=== PATIENT | female | born 1955 | race Caucasian/White ===

== ENCOUNTER 2017-06-25 06:14 | Inpatient (IN) | payer OTHER ==
[2017-06-10 08:19] VITALS: BMI 35.6
[2017-06-25] MEDS ORDERED: Bacitracin 150,000 UNIT in Sodium Chloride 0.9% Irrig 3,000 ML IR SCH (07:30)
[2017-06-25] MEDS ORDERED: Bupivacaine HCl 0.5% PF (10 ml) Inj ONE ×2 (07:41→13:32)
[2017-06-25] MEDS ORDERED: ceFAZolin IV 2 gm in Dextrose 2 GM/50 ML BAG IVPB ONE (07:42)
[2017-06-25] MEDS ORDERED: Thrombin Topical 20,000 Intl Units Spray Kit TOP ONE (07:42)
[2017-06-25] MEDS ORDERED: Lactated Ringer's 1,000 ML IV ONE ×3 (08:03→11:15)
[2017-06-25] MEDS ORDERED: Midazolam 2 MG/2 ML VIAL ONE (08:07)
[2017-06-25] MEDS ORDERED: Propofol 10 mg/ml Inj (20 ML) ONE ×2 (08:07→11:38)
[2017-06-25] MEDS ORDERED: Bupivacaine Liposomal Inj 20 ml INJ ONE (08:22)
[2017-06-25] MEDS ORDERED: Sodium Chloride 0.9% 60 ML IV ONE (08:42)
[2017-06-25] MEDS ORDERED: Rocuronium 10 mg/ml (10 ml) ONE ×2 (09:26→09:27)
[2017-06-25] MEDS ORDERED: Neostigmine Methylsulfate 3mg/3ml Syringe IV ONE (10:51)
[2017-06-25] MEDS ORDERED: HYDROmorphone 0.5 mg/0.5 ml ISec IVP PRN (12:08)
--- NOTE | 2017-06-25 14:18 | PCM.ANESB7 ---
Adductor Canal Block - Adductor Canal Block Date of Procedure: 06/25/17 Anesthiologist: Karsten Pre-Procedure Diagnosis: s/p left knee total arthoplasty Post-Procedure Diagnosis: same Procedure Performed: Adductor Canal Block Left - Procedure Adductor Canal Block: The procedure was explained to the patient that it is for the post-operative pain management. Consent was obtained after a thorough discussion with the patient regarding the benefits and possible complications of local anesthetic adductor canal block of the femoral nerve. Standard monitors were applied to the patient. Time-out was held with the circulating nurse to confirm the appropriate block. The patient was placed in supine position with and the operative leg was flexed slightly at the knee and externally rotated as needed, and was kept anatomically stable. The mid-thigh of the left lower extremity was exposed. The ultrasound transducer was then applied transversely along the medial aspect, about midway down the thigh and the femoral artery and vein were identified in appropriate relation with the sartorius muscle. At this time, the femoral nerve was visualized lateral to the femoral artery within the canal. After thorough identification, this area area was prepped with chloraprep. At this point, a #22 gauge Stimuplex 4-inch needle was inserted in-plane in a [id number] orientation, and advanced toward the femoral nerve. Advancement was performed carefully under direct ultrasound visualization. After negative aspiration, 5cc of 0.5% Bupivacaine was injected and this was followed with 15cc of 0.5% Bupivacaine. Under ultrasound guidance the local anesthetics were observed spreading around the femoral nerve. The needle was removed intact and sterile dressing was applied. The patient had stable vital signs, was conscious and in no apparent distress. The patient tolerated the femoral nerve block well with stable vital signs.
[2017-06-25 14:23] LABS: BASO # 0.1 K/uL (0.0-0.2); BASO % 0.4 % (0.0-2.0); HEMOGLOBIN 11.7 g/dL (11.0-16.0); LYMPH # 1.1 K/uL (1.0-4.3); LYMPH % 7.6 % (20.0-40.0); MEAN CELL VOLUME 86.1 fL (81.0-99.0); MEAN CORPUSCULAR HEMOGLOBIN 28.4 pg (27.0-31.0); MEAN PLATELET VOLUME 7.6 fL (7.2-11.7); MONO # 1.2 K/uL (0.0-0.8); MONO % 8.1 % (0.0-10.0); NEUT # 12.2 K/uL (1.8-7.0); NEUT % 83.9 % (50.0-75.0); PLATELET COUNT 278 K/uL (130-400); RBC 4.13 Mil/uL (3.80-5.20); RED CELL DISTRIBUTION WIDTH 16.8 % (11.5-14.5); WHITE BLOOD COUNT 14.5 K/uL (4.8-10.8)
[2017-06-25 14:30] LABS: PROTHROMBIN TIME 11.7 SECONDS (9.7-12.2)
[2017-06-25 14:56] LABS: ANISOCYTOSIS SLIGHT; BANDS 1 % (0-2); LYMPHOCYTE 7 % (20-40); MONOCYTE 4 % (0-10); NEUTROPHIL 88 % (50-75); PLATELET ESTIMATE NORMAL (NORMAL); TOTAL CELLS COUNTED 100
[2017-06-25 14:58] LABS: HYPOCHROMIC SLIGHT; OVALOCYTES SLIGHT; POLYCHROMIC SLIGHT
[2017-06-25 15:00] LABS: ALB/GLOB RATIO 1.3 (1.0-2.1); ALBUMIN 3.5 g/dL (3.5-5.0); ALT/SGPT 46 U/L (9-52); AST/SGOT 34 U/L (14-36); BLOOD UREA NITROGEN 13 mg/dL (7-17); CALCIUM 7.5 mg/dl (8.6-10.4); GFR AFRICAN-AMERICAN > 60; GFR NON-AFRICAN AMERICAN > 60
--- NOTE | 2017-06-25 15:41 | RAD ---
PROCEDURE: Left Knee Radiographs. HISTORY: Postop COMPARISON: None. FINDINGS: BONES: Components of the left TKA are in satisfactory position and alignment. JOINTS: Normal. No osteoarthritis. JOINT EFFUSION: None. OTHER FINDINGS: None. IMPRESSION: Satisfactory postoperative status following left TKA.
--- NOTE | 2017-06-25 16:35 | CP.PCM.PN ---
Subjective - Date & Time of Evaluation Date of Evaluation: 06/25/17 Time of Evaluation: 16:04 - Subjective Subjective: 61 year old female with past medical history significant for HTN, DM, Breast cancer ( in remission since 2012) and hypercholesterolemia presents s/p left total knee replacement earlier today. Patient states that she had the surgery because she had been developing knee pain for several years without much relief. Patient states her doctor told her that all her cartilage had worn out which resulted in friction between her bones. Patient states that that she is in some pain post- up and a bit groggy. PMHx- as stated above PSHx- lumpectomy of breast in 2012 Fam Hx- Great grandmother had breast cancer Social Hx- denes alcohol, tobacco or illicit drug use Allergies- denies Medications- Venlafaxine, Lipitor, HCTZ and another medication for the vessels PMD: Dr. Lynn Dalton Objective - Vital Signs/Intake and Output Vital Signs (last 24 hours): Temp Pulse Resp BP Pulse Ox 98.4 F 88 20 118/71 97 06/25/17 14:50 06/25/17 14:50 06/25/17 14:50 06/25/17 14:50 06/25/17 14:50 Intake and Output: 06/25/17 06/25/17 06:59 18:59 Intake Total 50 Output Total 600 Balance -550 - Medications Medications: Current Medications Diltiazem HCl (Cardizem) 30 mg PO DAILY [facility] Home Med (Letrozole [Femara]) 2.5 mg PO DAILY [facility] Home Med (Venlafaxine Hcl [Venlafaxine Hcl]) 25 mg PO DAILY [facility] Hydrochlorothiazide (Hydrodiuril) 25 mg PO DAILY [facility] Lactated Ringer's (Lactated Ringer's) 1,000 mls @ 100 mls/hr IV .Q10H [facility] Acetaminophen (Ofirmev) 100 mls @ 400 mls/hr IV Q6 PRN PRN Reason: Pain, moderate (4-7) Stop: 06/26/17 12:10 Last Admin: 06/25/17 12:49 Dose: 100 mls Cefazolin Sodium/Dextrose (Ancef Iv 2 Gm Duplex) 2 gm in 50 mls @ 100 mls/hr IVPB Q8H [facility] Morphine Sulfate (Morphine) 2 mg IVP Q4H PRN PRN Reason: Pain, moderate (4-7) Rosuvastatin Calcium (Crestor) 10 mg PO HS [facility] Sitagliptin Phosphate (Januvia) 25 mg PO DAILY [facility] - Labs Labs: 06/25/17 14:19 06/25/17 14:19 PT 11.7 SECONDS (9.7-12.2) 06/25/17 14:19 INR 1.0 06/25/17 14:19 APTT 23 SECONDS (21-34) 06/25/17 14:19 - Constitutional Appears: Non-toxic, No Acute Distress - Head Exam Head Exam: ATRAUMATIC, NORMAL INSPECTION, NORMOCEPHALIC - Eye Exam Eye Exam: EOMI, Normal appearance, PERRL Pupil Exam: NORMAL ACCOMODATION - ENT Exam ENT Exam: Mucous Membranes Moist - Neck Exam Neck Exam: Full ROM - Cardiovascular Exam Cardiovascular Exam: REGULAR RHYTHM - GI/Abdominal Exam GI & Abdominal Exam: Soft, Normal Bowel Sounds - Extremities Exam Extremities Exam: Full ROM, Normal Capillary Refill Additional comments: left knee in specialized casting, wrapped in arnaldo bandage; able to wiggle toes - Back Exam Back Exam: Full ROM - Neurological Exam Neurological Exam: Alert, Awake, Oriented x3 - Psychiatric Exam Psychiatric exam: Normal Affect, Normal Mood - Skin Skin Exam: Dry, Normal Color, Warm Assessment and Plan (1) S/P knee replacement Assessment & Plan: F/U Ortho recommendations Physical Therapy recommendations Pain control D/C fluids once patient tolerates a diet Status: Acute (2) Hypertension Assessment & Plan: Cont Home Med HCTZ D/C fluids once patient tolerates a diet Pain control Cont to monitor Heart Healthy diet Status: Chronic (3) Diabetes Assessment & Plan: Januvia on board F/U A1c Cont to monitor Status: Chronic (4) Hypercholesteremia Assessment & Plan: Crestor QHS Counseled on dietary and exercise changes Status: Chronic (5) History of breast cancer Assessment & Plan: Patient has been in remission since 2012 s/p lumpectomy Was previously taking Femara ( hormone based chemotherapy) as far back as 2015 per hospital record. Need to confirm if patient is still on this medication. Will hold off on restarting until this is verified Status: Acute (6) Prophylactic measure Assessment & Plan: SCDs to right leg No indications for GI prophylaxis at this time Status: Acute
[2017-06-25] MEDS: Lactated Ringer's 1,000 ML IV SCH (18:00)
[2017-06-25] MEDS: ceFAZolin IV 2 gm in Dextrose 2 GM/50 ML BAG IVPB SCH ×2 (18:14→21:48)
--- NOTE | 2017-06-25 20:06 | PCM.SURG1 ---
Surgeon's Initial Post Op Note - Surgeon's Notes Surgeon: Devonte Harper MD [employer] Laminating Machine Feeder: Hari Lance PA-C Type of Anesthesia: General Endo, [facility] Pre-Operative Diagnosis: Left knee #1 DJD. #2 varus Operative Findings: Left knee #1 DJD. #2 varus. #3 synovitis Post-Operative Diagnosis: Left knee #1 DJD. #2 varus. #3 synovitis. #4 multiple loose bodies Operation Performed: Left knee #1 total knee replacement. #2 open extensive synovectomy. #3 open removal mulitple loose bodies Specimen/Specimens Removed: specimen= estefany cuts and loose bodies to path. tourniquet time= 120min at 300mmHg. complications= none. Implants= Medacta GMK primary cemented total knee system, femur size 3N, tibia size 3, sphere poly spacer size 14mm, size 1 patellar button. [employer]omet [place] Cement w/ abx Estimated Blood Loss: EBL {In ML}: 50 Blood Products Given: N/A Drains Used: Hemovac Post-Op Condition: Good Date of Surgery/Procedure: 06/25/17 Time of Surgery/Procedure: 11:00
[2017-06-26] MEDS: Oxycodone/Acetaminophen 5/325 mg Tab PO PRN ×2 (04:29→17:05)
[2017-06-26] MEDS: ceFAZolin IV 2 gm in Dextrose 2 GM/50 ML BAG IVPB SCH ×3 (05:45→21:00)
[2017-06-26] MEDS: Lactated Ringer's 1,000 ML IV SCH (06:36)
[2017-06-26 06:45] LABS: BASO % 0.1 % (0.0-2.0); EOS % 0.1 % (0.0-4.0); HEMOGLOBIN 10.2 g/dL (11.0-16.0); LYMPH # 1.1 K/uL (1.0-4.3); LYMPH % 12.4 % (20.0-40.0); MEAN CELL VOLUME 85.6 fL (81.0-99.0); MEAN CORPUSCULAR HEMOGLOBIN 27.6 pg (27.0-31.0); MEAN CORPUSCULAR HGB CONC 32.3 g/dL (33.0-37.0); MEAN PLATELET VOLUME 7.5 fL (7.2-11.7); MONO # 1.4 K/uL (0.0-0.8); MONO % 15.6 % (0.0-10.0); NEUT # 6.6 K/uL (1.8-7.0); NEUT % 71.8 % (50.0-75.0); NRBC % 0.1 % (0.0-2.0); RBC 3.69 Mil/uL (3.80-5.20); RED CELL DISTRIBUTION WIDTH 16.9 % (11.5-14.5); WHITE BLOOD COUNT 9.2 K/uL (4.8-10.8)
--- NOTE | 2017-06-26 07:45 | CP.PCM.PN ---
Subjective - Date & Time of Evaluation Date of Evaluation: 06/26/17 Time of Evaluation: 07:44 - Subjective Subjective: PGY2 medicine progress note for Dr. Gracia's service: Patient seen and examined. Patient states she is trying to manage with her knee pain. She states she has not been moving around much yet but is trying to start. Patient reports decreased appetite but denies nausea. Patient denies numbness or tingling in left leg. Patient states she has been using incentive spirometer and demonstrates use. Home medications verified with [facility] pharmacy: Januvia 100mg PO daily, metformin 500mg PO BID, Norvasc 5mg PO daily, Cardizem 90mg PO daily, Atorvastatin 20mg PO daily, Venlafaxine 25mg PO 1/2 tab in morning, 1/2 tab in evening, Letrozole 2.5mg PO daily Objective - Vital Signs/Intake and Output Vital Signs (last 24 hours): Temp Pulse Resp BP Pulse Ox 99.7 F H 98 H 20 115/67 93 L 06/26/17 04:00 06/26/17 04:00 06/26/17 04:00 06/26/17 04:00 06/25/17 23:25 Intake and Output: 06/26/17 06/26/17 06:59 18:59 Intake Total 1120 Output Total 950 Balance 170 - Medications Medications: Current Medications Diltiazem HCl (Cardizem) 30 mg PO DAILY [facility] Docusate Sodium (Colace) 100 mg PO BID [facility] Enoxaparin Sodium (Lovenox) 40 mg SC DAILY [facility] Home Med (Letrozole [Femara]) 2.5 mg PO DAILY [facility] Home Med (Venlafaxine Hcl [Venlafaxine Hcl]) 25 mg PO DAILY [facility] Hydrochlorothiazide (Hydrodiuril) 25 mg PO DAILY [facility] Hydromorphone HCl (Dilaudid) 1 mg IVP Q4H PRN PRN Reason: Pain, moderate (4-7) Last Admin: 06/26/17 06:29 Dose: 1 mg Lactated Ringer's (Lactated Ringer's) 1,000 mls @ 100 mls/hr IV .Q10H [facility] Last Admin: 06/26/17 06:36 Dose: 100 mls/hr Acetaminophen (Ofirmev) 100 mls @ 400 mls/hr IV Q6 PRN PRN Reason: Pain, moderate (4-7) Stop: 06/26/17 12:10 Last Admin: 06/25/17 12:49 Dose: 100 mls Cefazolin Sodium/Dextrose (Ancef Iv 2 Gm Duplex) 2 gm in 50 mls @ 100 mls/hr IVPB Q8H [facility] Stop: 06/28/17 06:29 Last Admin: 06/26/17 05:45 Dose: 100 mls/hr Morphine Sulfate (Morphine) 2 mg IVP Q4H PRN PRN Reason: Pain, moderate (4-7) Oxycodone/Acetaminophen (Percocet 5/325 Mg Tab) 2 tab PO Q4H PRN PRN Reason: Pain, Mild (1-3) Stop: 06/28/17 19:55 Last Admin: 06/26/17 04:29 Dose: 2 tab Pneumococcal Polyvalent Vaccine (Pneumovax 23 Vaccine) 0.5 ml IM .ONCE ONE Stop: 06/27/17 10:01 Rosuvastatin Calcium (Crestor) 10 mg PO [facility] Last Admin: 06/25/17 21:48 Dose: 10 mg Sitagliptin Phosphate (Januvia) 25 mg PO DAILY [facility] - Labs Labs: 06/26/17 06:22 06/25/17 14:19 PT 11.7 SECONDS (9.7-12.2) 06/25/17 14:19 INR 1.0 06/25/17 14:19 APTT 23 SECONDS (21-34) 06/25/17 14:19 - Constitutional Appears: No Acute Distress - Head Exam Head Exam: ATRAUMATIC, NORMOCEPHALIC - Eye Exam Eye Exam: EOMI - ENT Exam ENT Exam: Mucous Membranes Moist - Respiratory Exam Respiratory Exam: Clear to Ausculation Bilateral - Cardiovascular Exam Cardiovascular Exam: +S1, +S2 - GI/Abdominal Exam GI & Abdominal Exam: Soft, Normal Bowel Sounds - Extremities Exam Additional comments: left leg wrapped, patient has intact sensation, is able to move toes - Neurological Exam Neurological Exam: Alert, Awake - Skin Skin Exam: Warm Assessment and Plan - Assessment and Plan (Free Text) Assessment: (1) S/P knee replacement Assessment & Plan: POD #1 F/U Ortho recommendations per Dr. Walsh F/U Physical Therapy recommendations Pain control: dilaudid 1mg IVP q4prn moderate pain, morphine 2mg IVP q4prn pain , percocet 2 tab PO q4prn mild pain D/C fluids once patient tolerates a diet Status: Acute (2) Hypertension Assessment & Plan: Cont Home Meds Cardizem 90mg PO daily, Norvasc 5mg PO daily D/C fluids once patient tolerates a diet Pain control Cont to monitor Heart Healthy diet Status: Chronic (3) Diabetes Assessment & Plan: Jankeri on board A1c 7.2 ISS, accuchecks ACHS mod consistent carb diet hypoglycemia protocol prn Cont to monitor Status: Chronic (4) Hypercholesteremia Assessment & Plan: Crestor 10mg QHS (patient takes Atorvastatin 20mg PO HS at home) Counseled on dietary and exercise changes Status: Chronic (5) History of breast cancer Assessment & Plan: Patient has been in remission since 2012 s/p lumpectomy Patient takes Femara 2.5mg PO daily, non-formulary here Patient to take her own medication Status: Acute (6) Depression Assessment & Plan: Patient takes Venlafaxine 25mg PO daily (1/2 tab in AM, 1/2 tab in PM) Patient to take her own medication Status: Acute (7) Prophylactic measure Assessment & Plan: SCDs to right leg lovenox 40mg SC daily colace 100mg PO BID Status: Acute All medical management as per Dr. Gracia
[2017-06-26 08:06] LABS: ALB/GLOB RATIO 1.2 (1.0-2.1); ALBUMIN 3.1 g/dL (3.5-5.0); ALT/SGPT 40 U/L (9-52); AST/SGOT 30 U/L (14-36); BLOOD UREA NITROGEN 7 mg/dL (7-17); CALCIUM 7.4 mg/dl (8.6-10.4); GFR AFRICAN-AMERICAN > 60; GFR NON-AFRICAN AMERICAN > 60; MAGNESIUM 1.4 mg/dL (1.6-2.3)
[2017-06-26] MEDS ORDERED: Dextrose 50% SYRINGE Inj (50 ml) IVP PRN (09:18)
[2017-06-26] MEDS ORDERED: Glucagon Recombinant 1 mg Inj IM PRN (09:18)
[2017-06-26] MEDS ORDERED: Potassium Chloride 20 mEq ER Tab PO ONE (09:28)
[2017-06-26] MEDS ORDERED: VENLAFAXINE HCL 25 MG PO SCH (10:00)
[2017-06-26] MEDS ORDERED: LETROZOLE 2.5 MG TABLET PO SCH ×2 (10:00→14:30)
[2017-06-26] MEDS: Magnesium Sulfate 1 gm in D5W 1 GM/100 ML BAG IVPB SCH ×2 (10:34→12:38)
[2017-06-26] MEDS: Enoxaparin 40 mg Syringe SC SCH (10:36)
--- NOTE | 2017-06-26 11:37 | CP.PCM.PN ---
Subjective - Date & Time of Evaluation Date of Evaluation: 06/26/17 Time of Evaluation: 11:33 - Subjective Subjective: Patient states pain in knee is controlled. Patient requests to be discharged home with services. Denies CP/SOB/dizziness/numbness/tingling. Objective - Vital Signs/Intake and Output Vital Signs (last 24 hours): Temp Pulse Resp BP Pulse Ox 99.0 F 81 20 112/64 97 06/26/17 08:16 06/26/17 08:16 06/26/17 08:16 06/26/17 08:16 06/26/17 08:16 Intake and Output: 06/26/17 06/26/17 06:59 18:59 Intake Total 1120 Output Total 950 Balance 170 - Medications Medications: Current Medications Amlodipine Besylate (Norvasc) 5 mg PO DAILY [facility] Last Admin: 06/26/17 10:36 Dose: 5 mg Dextrose (Dextrose 50% Inj) 0 ml IVP .STAT PRN; Protocol PRN Reason: Hypoglycemia Protocol Dextrose (Glutose 15) 0 gm PO .ONCE PRN; Protocol PRN Reason: Hypoglycemia Protocol Diltiazem HCl (Cardizem) 90 mg PO DAILY [facility] Last Admin: 06/26/17 11:00 Dose: 90 mg Docusate Sodium (Colace) 100 mg PO BID [facility] Last Admin: 06/26/17 10:35 Dose: 100 mg Enoxaparin Sodium (Lovenox) 40 mg SC DAILY [facility] Last Admin: 06/26/17 10:36 Dose: 40 mg Glucagon (Glucagen Diagnostic Kit) 0 mg IM .STAT PRN; Protocol PRN Reason: Hypoglycemia Protocol Home Med (Letrozole [Femara]) 2.5 mg PO DAILY [facility] Hydromorphone HCl (Dilaudid) 1 mg IVP Q4H PRN PRN Reason: Pain, moderate (4-7) Last Admin: 06/26/17 10:36 Dose: 1 mg Lactated Ringer's (Lactated Ringer's) 1,000 mls @ 100 mls/hr IV .Q10H [facility] Last Admin: 06/26/17 06:36 Dose: 100 mls/hr Acetaminophen (Ofirmev) 100 mls @ 400 mls/hr IV Q6 PRN PRN Reason: Pain, moderate (4-7) Stop: 06/26/17 12:10 Last Admin: 06/25/17 12:49 Dose: 100 mls Cefazolin Sodium/Dextrose (Ancef Iv 2 Gm Duplex) 2 gm in 50 mls @ 100 mls/hr IVPB Q8H [facility] Stop: 06/28/17 06:29 Last Admin: 06/26/17 05:45 Dose: 100 mls/hr Dextrose (Dextrose 5% In Water 1000 Ml) 1,000 mls @ 0 mls/hr IV .Q0M PRN; Protocol; Per Protocol PRN Reason: Hypoglycemia Protocol Insulin Aspart (Novolog) 0 unit SC ACHS [facility] PRN Reason: Protocol Morphine Sulfate (Morphine) 2 mg IVP Q4H PRN PRN Reason: Pain, moderate (4-7) Oxycodone/Acetaminophen (Percocet 5/325 Mg Tab) 2 tab PO Q4H PRN PRN Reason: Pain, Mild (1-3) Stop: 06/28/17 19:55 Last Admin: 06/26/17 04:29 Dose: 2 tab Pneumococcal Polyvalent Vaccine (Pneumovax 23 Vaccine) 0.5 ml IM .ONCE ONE Stop: 06/27/17 10:01 Rosuvastatin Calcium (Crestor) 10 mg PO HS [facility] Last Admin: 06/25/17 21:48 Dose: 10 mg Sitagliptin Phosphate (Januvia) 100 mg PO DAILY [facility] Last Admin: 06/26/17 10:35 Dose: 100 mg - Labs Labs: 06/26/17 06:22 06/26/17 06:22 PT 11.7 SECONDS (9.7-12.2) 06/25/17 14:19 INR 1.0 06/25/17 14:19 APTT 23 SECONDS (21-34) 06/25/17 14:19 - Extremities Exam Additional comments: LLE: +ROM ankle/toes, sensation intact, patient seen with PT/OT for eval Assessment and Plan (1) Primary osteoarthritis of left knee Assessment & Plan: POD#1 s/p left TKR -imaging reviewed, shows good alignment of prosthesis -PT/OT -d/c planning to home -VTE proph -d/c Dr. Harper, agrees with above Status: Acute
[2017-06-26] MEDS ORDERED: Magnesium Sulfate 1 gm in D5W 1 GM/100 ML BAG IVPB SCH ×2 (12:00→14:00)
[2017-06-26] MEDS: (Novolog) Insulin Aspart, Recombinant 100 u/ml 10 ml vial SC SCH ×3 (12:39→22:00)
[2017-06-26] MEDS ORDERED: Patient's Own Medication - Tablet/Capusle PO SCH (13:45)
[2017-06-26] MEDS: VENLAFAXINE HCL 25 MG TABLET PO SCH (18:22)
[2017-06-27] MEDS: ceFAZolin IV 2 gm in Dextrose 2 GM/50 ML BAG IVPB SCH ×3 (06:05→21:52)
--- NOTE | 2017-06-27 07:01 | CP.PCM.PN ---
Subjective - Date & Time of Evaluation Date of Evaluation: 06/27/17 Time of Evaluation: 10:45 - Subjective Subjective: PGY 2 Medicine note- Dr. Gracia's service Patient had a low grade temp overnight which decreased. Patient resting soundly ; difficult to rouse. Patient denies complaints. Per nursing, patient is now agreeable to rehabilitation services. Objective - Vital Signs/Intake and Output Vital Signs (last 24 hours): Temp Pulse Resp BP Pulse Ox 100 F H 101 H 20 111/63 96 06/27/17 04:10 06/27/17 04:10 06/27/17 04:10 06/27/17 04:10 06/26/17 23:30 Intake and Output: 06/27/17 06/27/17 06:59 18:59 Intake Total 500 Output Total 710 Balance -210 - Medications Medications: Current Medications Amlodipine Besylate (Norvasc) 5 mg PO DAILY [facility] Last Admin: 06/26/17 10:36 Dose: 5 mg Dextrose (Dextrose 50% Inj) 0 ml IVP .STAT PRN; Protocol PRN Reason: Hypoglycemia Protocol Dextrose (Glutose 15) 0 gm PO .ONCE PRN; Protocol PRN Reason: Hypoglycemia Protocol Diltiazem HCl (Cardizem) 90 mg PO DAILY [facility] Last Admin: 06/26/17 11:00 Dose: 90 mg Docusate Sodium (Colace) 100 mg PO BID [facility] Last Admin: 06/26/17 18:20 Dose: 100 mg Enoxaparin Sodium (Lovenox) 40 mg SC DAILY [facility] Last Admin: 06/26/17 10:36 Dose: 40 mg Glucagon (Glucagen Diagnostic Kit) 0 mg IM .STAT PRN; Protocol PRN Reason: Hypoglycemia Protocol Home Med (Patient's Own Medication) 0.5 tab PO BID [facility] Last Admin: 06/26/17 18:22 Dose: 0.5 tab Home Med (Patient's Own Medication) 2.5 tab PO DAILY [facility] Last Admin: 06/26/17 18:27 Dose: 2.5 tab Hydromorphone HCl (Dilaudid) 1 mg IVP Q4H PRN PRN Reason: Pain, moderate (4-7) Last Admin: 06/27/17 06:14 Dose: 1 mg Cefazolin Sodium/Dextrose (Ancef Iv 2 Gm Duplex) 2 gm in 50 mls @ 100 mls/hr IVPB Q8H [facility] Stop: 06/28/17 06:29 Last Admin: 06/27/17 06:05 Dose: 100 mls/hr Dextrose (Dextrose 5% In Water 1000 Ml) 1,000 mls @ 0 mls/hr IV .Q0M PRN; Protocol; Per Protocol PRN Reason: Hypoglycemia Protocol Insulin Aspart (Novolog) 0 unit SC ACHS [facility] PRN Reason: Protocol Last Admin: 06/26/17 22:00 Dose: Not Given Morphine Sulfate (Morphine) 2 mg IVP Q4H PRN PRN Reason: Pain, moderate (4-7) Oxycodone/Acetaminophen (Percocet 5/325 Mg Tab) 2 tab PO Q4H PRN PRN Reason: Pain, Mild (1-3) Stop: 06/28/17 19:55 Last Admin: 06/26/17 17:05 Dose: 2 tab Pneumococcal Polyvalent Vaccine (Pneumovax 23 Vaccine) 0.5 ml IM .ONCE ONE Stop: 06/27/17 10:01 Rosuvastatin Calcium (Crestor) 10 mg PO HS [facility] Last Admin: 06/26/17 20:59 Dose: 10 mg Sitagliptin Phosphate (Januvia) 100 mg PO DAILY [facility] Last Admin: 06/26/17 10:35 Dose: 100 mg - Labs Labs: 06/26/17 06:22 06/26/17 06:22 PT 11.7 SECONDS (9.7-12.2) 06/25/17 14:19 INR 1.0 06/25/17 14:19 APTT 23 SECONDS (21-34) 06/25/17 14:19 - Constitutional Appears: Non-toxic, No Acute Distress - Head Exam Head Exam: ATRAUMATIC, NORMAL INSPECTION - Eye Exam Eye Exam: EOMI, Normal appearance, PERRL Pupil Exam: NORMAL ACCOMODATION - ENT Exam ENT Exam: Mucous Membranes Moist - Neck Exam Neck Exam: Full ROM - Respiratory Exam Respiratory Exam: NORMAL BREATHING PATTERN. absent: Wheezes - Cardiovascular Exam Cardiovascular Exam: REGULAR RHYTHM, +S1, +S2 - Extremities Exam Extremities Exam: Full ROM, Normal Capillary Refill, Normal Inspection Additional comments: left leg wrapped in anraldo bandage; ice packs in place, patient has intact sensation, is able to wiggle toes - Back Exam Back Exam: Full ROM, NORMAL INSPECTION - Neurological Exam Neurological Exam: Alert, Awake, Oriented x3 - Psychiatric Exam Psychiatric exam: Normal Affect, Normal Mood - Skin Skin Exam: Dry, Intact, Normal Color, Warm Assessment and Plan (1) Leukocytosis Status: Acute (2) S/P knee replacement Status: Acute (3) Hypertension Status: Chronic (4) Diabetes Status: Chronic (5) Hypercholesteremia Status: Chronic (6) History of breast cancer Status: Acute (7) Prophylactic measure Status: Acute - Assessment and Plan (Free Text) Assessment: Leukocytosis Assessment & Plan: White count increased to 16.9 Will monitor through today. Per Ortho Dr. Madrigal, patient's sometimes have an inflammatory response post op due to the cement fixation process associated with the surgery. Nonetheless will monitor today. Monitor vitals as well Low grade temperature- not fever High of 100 degrees. Monitor Temps S/P knee replacement Assessment & Plan: POD #2 F/U Ortho recommendations per Dr. Harper F/U Physical Therapy recommendations Pain control: Dilaudid 1mg IVP q4prn moderate pain, morphine 2mg IVP q4prn pain , Percocet 2 tab PO q4prn mild pain D/C huang Status: Acute Hypertension Assessment & Plan: Cont Home Meds Cardizem 90mg PO daily, Norvasc 5mg PO daily Pain control Cont to monitor Heart Healthy diet Status: Chronic Diabetes Assessment & Plan: Volodymyr on board A1c 7.2 ISS, accuchecks ACHS mod consistent carb diet hypoglycemia protocol prn Cont to monitor Status: Chronic Hypercholesteremia Assessment & Plan: Crestor 10mg QHS (patient takes Atorvastatin 20mg PO HS at home) Counseled on dietary and exercise changes Status: Chronic History of breast cancer Assessment & Plan: Patient has been in remission since 2012 s/p lumpectomy Patient takes Femara 2.5mg PO daily, non-formulary here Patient to take her own medication Status: Acute Depression Assessment & Plan: Patient takes home med Venlafaxine 25mg PO daily (1/2 tab in AM, 1/2 tab in PM) Status: Acute Prophylactic measure Assessment & Plan: SCDs to right leg Lovenox 40mg SC daily Colace 100mg PO BID Status: Acute Patient has changed mind and is now agreeable to rehabilitation services. Case management in the process of determining placement. All medical management as per Dr. Gracia
[2017-06-27 07:24] LABS: BASO % 0.1 % (0.0-2.0); HEMOGLOBIN 10.7 g/dL (11.0-16.0); LYMPH % 11.8 % (20.0-40.0); MEAN CELL VOLUME 87.3 fL (81.0-99.0); MEAN CORPUSCULAR HEMOGLOBIN 28.9 pg (27.0-31.0); MEAN CORPUSCULAR HGB CONC 33.1 g/dL (33.0-37.0); MEAN PLATELET VOLUME 7.8 fL (7.2-11.7); MONO # 2.1 K/uL (0.0-0.8); MONO % 12.5 % (0.0-10.0); NEUT # 12.8 K/uL (1.8-7.0); NEUT % 75.6 % (50.0-75.0); RBC 3.68 Mil/uL (3.80-5.20); RED CELL DISTRIBUTION WIDTH 16.7 % (11.5-14.5)
[2017-06-27 07:33] LABS: WHITE BLOOD COUNT 16.9 K/uL (4.8-10.8)
[2017-06-27] MEDS: (Novolog) Insulin Aspart, Recombinant 100 u/ml 10 ml vial SC SCH ×4 (08:15→21:53)
[2017-06-27 08:21] LABS: ALB/GLOB RATIO 1.2 (1.0-2.1); ALBUMIN 3.6 g/dL (3.5-5.0); ALT/SGPT 29 U/L (9-52); AST/SGOT 29 U/L (14-36); BLOOD UREA NITROGEN 5 mg/dL (7-17); CALCIUM 7.7 mg/dl (8.6-10.4); GFR AFRICAN-AMERICAN > 60; GFR NON-AFRICAN AMERICAN > 60; MAGNESIUM 2.1 mg/dL (1.6-2.3)
[2017-06-27] MEDS: Enoxaparin 40 mg Syringe SC SCH (09:55)
[2017-06-27] MEDS: VENLAFAXINE HCL 25 MG TABLET PO SCH ×2 (09:55→17:32)
[2017-06-27] MEDS ORDERED: Pneumococcal 23-Valent Vaccine IM ONE (10:00)
[2017-06-27] MEDS ORDERED: LETROZOLE 2.5 MG TABLET PO SCH (10:45)
[2017-06-28] MEDS: ceFAZolin IV 2 gm in Dextrose 2 GM/50 ML BAG IVPB SCH (05:24)
[2017-06-28 07:18] LABS: BASO # 0.1 K/uL (0.0-0.2); BASO % 0.5 % (0.0-2.0); EOS % 0.4 % (0.0-4.0); HEMOGLOBIN 8.9 g/dL (11.0-16.0); LYMPH # 1.6 K/uL (1.0-4.3); LYMPH % 14.5 % (20.0-40.0); MEAN CELL VOLUME 85.4 fL (81.0-99.0); MEAN CORPUSCULAR HEMOGLOBIN 29.3 pg (27.0-31.0); MEAN CORPUSCULAR HGB CONC 34.4 g/dL (33.0-37.0); MEAN PLATELET VOLUME 7.9 fL (7.2-11.7); MONO % 8.9 % (0.0-10.0); NEUT # 8.1 K/uL (1.8-7.0); NEUT % 75.7 % (50.0-75.0); NRBC % 0.1 % (0.0-2.0); RBC 3.04 Mil/uL (3.80-5.20); RED CELL DISTRIBUTION WIDTH 16.5 % (11.5-14.5); WHITE BLOOD COUNT 10.7 K/uL (4.8-10.8)
[2017-06-28] MEDS: (Novolog) Insulin Aspart, Recombinant 100 u/ml 10 ml vial SC SCH ×4 (07:54→21:47)
[2017-06-28 07:58] LABS: ALB/GLOB RATIO 1.1 (1.0-2.1); ALT/SGPT 39 U/L (9-52); AST/SGOT 43 U/L (14-36); BLOOD UREA NITROGEN 6 mg/dL (7-17); CALCIUM 7.2 mg/dl (8.6-10.4); GFR AFRICAN-AMERICAN > 60; GFR NON-AFRICAN AMERICAN > 60; MAGNESIUM 1.9 mg/dL (1.6-2.3)
[2017-06-28] MEDS: Enoxaparin 40 mg Syringe SC SCH (09:14)
[2017-06-28] MEDS: LETROZOLE 2.5 MG TABLET PO SCH (09:16)
[2017-06-28] MEDS: VENLAFAXINE HCL 25 MG TABLET PO SCH ×2 (09:17→17:15)
[2017-06-28] MEDS: Oxycodone/Acetaminophen 5/325 mg Tab PO PRN ×2 (17:40)
[2017-06-29] MEDS: (Novolog) Insulin Aspart, Recombinant 100 u/ml 10 ml vial SC SCH ×5 (08:30→21:45)
[2017-06-29] MEDS: Enoxaparin 40 mg Syringe SC SCH (09:53)
[2017-06-29] MEDS: VENLAFAXINE HCL 25 MG TABLET PO SCH ×2 (09:54→17:16)
[2017-06-29] MEDS: LETROZOLE 2.5 MG TABLET PO SCH (09:59)
[2017-06-29] MEDS ORDERED: Potassium Chloride 20 mEq ER Tab PO SCH (10:00)
--- NOTE | 2017-06-29 10:45 | CP.PCM.PN ---
Subjective - Date & Time of Evaluation Date of Evaluation: 06/29/17 Time of Evaluation: 10:42 - Subjective Subjective: patient lying in bed, comfortable, has no complaints. Patient lying in bed, comfortable, she has no complaints. She denies chest pain, SOB, fevers, chills, headache, nausea vomiting, numbness or tingling, calf pain. She states that she was able to urinate on her own this morning and last night Objective - Vital Signs/Intake and Output Vital Signs (last 24 hours): Temp Pulse Resp BP Pulse Ox 98.2 F 85 20 127/72 98 06/29/17 08:33 06/29/17 08:33 06/29/17 08:33 06/29/17 08:33 06/29/17 08:33 Intake and Output: 06/29/17 06/29/17 06:59 18:59 Intake Total 625 Output Total 1325 Balance -700 - Medications Medications: Current Medications Acetaminophen (Tylenol 325mg Tab) 650 mg PO Q6 PRN PRN Reason: Fever >100.4 F Amlodipine Besylate (Norvasc) 5 mg PO DAILY [facility] Last Admin: 06/29/17 09:54 Dose: 5 mg Bethanechol Chloride (Urecholine) 25 mg PO BID [facility] Last Admin: 06/29/17 09:53 Dose: 25 mg Dextrose (Dextrose 50% Inj) 0 ml IVP .STAT PRN; Protocol PRN Reason: Hypoglycemia Protocol Dextrose (Glutose 15) 0 gm PO .ONCE PRN; Protocol PRN Reason: Hypoglycemia Protocol Diltiazem HCl (Cardizem) 90 mg PO DAILY [facility] Last Admin: 06/29/17 09:53 Dose: 90 mg Docusate Sodium (Colace) 100 mg PO BID [facility] Last Admin: 06/29/17 09:53 Dose: 100 mg Enoxaparin Sodium (Lovenox) 40 mg SC DAILY [facility] Last Admin: 06/29/17 09:53 Dose: 40 mg Glucagon (Glucagen Diagnostic Kit) 0 mg IM .STAT PRN; Protocol PRN Reason: Hypoglycemia Protocol Home Med (Patient's Own Medication) 0.5 tab PO BID [facility] Last Admin: 06/29/17 09:54 Dose: 0.5 tab Home Med (Patient's Own Medication) 1 tab PO DAILY [facility] Last Admin: 06/29/17 09:59 Dose: 1 tab Insulin Aspart (Novolog) 0 unit SC ACHS [facility] PRN Reason: Protocol Last Admin: 06/29/17 08:30 Dose: 1 unit Morphine Sulfate (Morphine) 2 mg IVP Q4H PRN PRN Reason: Pain, moderate (4-7) Last Admin: 06/29/17 06:51 Dose: 2 mg Potassium Chloride (K-Dur 20 Meq Er Tab) 20 meq PO DAILY [facility] Last Admin: 06/29/17 09:54 Dose: 20 meq Rosuvastatin Calcium (Crestor) 10 mg PO HS [facility] Last Admin: 06/28/17 23:54 Dose: 10 mg Sitagliptin Phosphate (Januvia) 100 mg PO DAILY [facility] Last Admin: 06/28/17 09:14 Dose: 100 mg - Labs Labs: 06/28/17 07:08 06/28/17 07:08 PT 11.7 SECONDS (9.7-12.2) 06/25/17 14:19 INR 1.0 06/25/17 14:19 APTT 23 SECONDS (21-34) 06/25/17 14:19 - Extremities Exam Additional comments: right lower extremity: Unchanged Left lower extremity: Surgical wound is clean dry and intact, no swelling no warmth and no erythema, + mild ecchymosis along the anterior garsia, able to tolerate painless range of motion from 0-45, able to achieve 90 flexion with pain. +5/5 motor strength hip flexion/extension, knee flexion/extension, ankle plantar flexion/dorsiflexion, toes up and down Sensory intact L2-S2, DPN/SPN/TN 2+ dorsalis pedis pulse and brisk cap refill all toes Calves are soft and nontender bilaterally Assessment and Plan (1) Primary osteoarthritis of left knee Assessment & Plan: 61-year-old female with long-standing left knee pain and loss of range of motion. DX = L knee #1 DJD #2 varus deformity #3 flexion contracture Status post L knee total knee arthroplasty on06/25/17,postoperative day #4 Plan: L knee: -Physical therapy = ambulation, transfers, working on ROM from full extension to as much flexion as possible, protective weightbearing -disposition =patient initially wanted to be DC home with services but then changed he when she felt that she was not strong enough and social work has been attempting to obtain placement for her at local subacute rehabilitation. -Pain control -DVT prophylaxis -Medical management per primary team -From orthopedic point of view patient is cleared for DC to subacute rehabilitation -CBC/CMP -Incentive spirometry -Out of bed as much as possible with nursing staff Urinary retention: -Postoperatively patient required straight catheterization twice to relieve full bladder -She states today that she was able to urinate on her own last night and this morning, nursing staff reports that it was more incontinence -We'll await consult and recommendations please contact me with any questions, updates, concerns [phone] Devonte Harper M.D. Orthopedic surgery Status: Acute (2) S/P knee replacement Status: Acute
--- NOTE | 2017-06-29 10:53 | CP.PCM.PN ---
Subjective - Date & Time of Evaluation Date of Evaluation: 06/27/17 Time of Evaluation: 07:00 - Subjective Subjective: patient lying in bed comfortably. Very groggy from pain medication. Pain well-controlled. Denies chest pain, shortness of breath, headache, nausea vomiting,fevers, chills , numbness or tingling, calf pain. Objective - Vital Signs/Intake and Output Vital Signs (last 24 hours): Temp Pulse Resp BP Pulse Ox 98.2 F 85 20 127/72 98 06/29/17 08:33 06/29/17 08:33 06/29/17 08:33 06/29/17 08:33 06/29/17 08:33 Intake and Output: 06/29/17 06/29/17 06:59 18:59 Intake Total 625 Output Total 1325 Balance -700 - Medications Medications: Current Medications Acetaminophen (Tylenol 325mg Tab) 650 mg PO Q6 PRN PRN Reason: Fever >100.4 F Amlodipine Besylate (Norvasc) 5 mg PO DAILY [facility] Last Admin: 06/29/17 09:54 Dose: 5 mg Bethanechol Chloride (Urecholine) 25 mg PO BID [facility] Last Admin: 06/29/17 09:53 Dose: 25 mg Dextrose (Dextrose 50% Inj) 0 ml IVP .STAT PRN; Protocol PRN Reason: Hypoglycemia Protocol Dextrose (Glutose 15) 0 gm PO .ONCE PRN; Protocol PRN Reason: Hypoglycemia Protocol Diltiazem HCl (Cardizem) 90 mg PO DAILY [facility] Last Admin: 06/29/17 09:53 Dose: 90 mg Docusate Sodium (Colace) 100 mg PO BID [facility] Last Admin: 06/29/17 09:53 Dose: 100 mg Enoxaparin Sodium (Lovenox) 40 mg SC DAILY [facility] Last Admin: 06/29/17 09:53 Dose: 40 mg Glucagon (Glucagen Diagnostic Kit) 0 mg IM .STAT PRN; Protocol PRN Reason: Hypoglycemia Protocol Home Med (Patient's Own Medication) 0.5 tab PO BID [facility] Last Admin: 06/29/17 09:54 Dose: 0.5 tab Home Med (Patient's Own Medication) 1 tab PO DAILY [facility] Last Admin: 06/29/17 09:59 Dose: 1 tab Insulin Aspart (Novolog) [address] [facility] PRN Reason: Protocol Last Admin: 06/29/17 08:30 Dose: 1 unit Morphine Sulfate (Morphine) 2 mg IVP Q4H PRN PRN Reason: Pain, moderate (4-7) Last Admin: 06/29/17 06:51 Dose: 2 mg Potassium Chloride (K-Dur 20 Meq Er Tab) 20 meq PO DAILY [facility] Last Admin: 06/29/17 09:54 Dose: 20 meq Rosuvastatin Calcium (Crestor) 10 mg PO HS [facility] Last Admin: 06/28/17 23:54 Dose: 10 mg Sitagliptin Phosphate (Januvia) 100 mg PO DAILY [facility] Last Admin: 06/28/17 09:14 Dose: 100 mg - Labs Labs: 06/28/17 07:08 06/28/17 07:08 PT 11.7 SECONDS (9.7-12.2) 06/25/17 14:19 INR 1.0 06/25/17 14:19 APTT 23 SECONDS (21-34) 06/25/17 14:19 - Extremities Exam Additional comments: right lower extremity: no swelling no warmth or erythema, no tenderness to palpation +5/5 motor strength hip flexion/extension, knee flexion/extension, ankle plantar flexion/dorsiflexion, toes up and down Sensory intact L2-S2, DPN/SPN/TN 2+ dorsalis pedis pulse and brisk cap refill all toes Left lower extremity: surgical dressing is clean dry and intact, +5/5 motor strength hip flexion/extension, knee flexion/extension, ankle plantar flexion/dorsiflexion, toes up and down Sensory intact L2-S2, DPN/SPN/TN 2+ dorsalis pedis pulse and brisk cap refill all toes Calves are soft and nontender bilaterally Assessment and Plan (1) Primary osteoarthritis of left knee Assessment & Plan: 61-year-old female with long-standing left knee pain and loss of range of motion. DX = L knee #1 DJD #2 varus deformity #3 flexion contracture Status post L knee total knee arthroplasty on06/25/17,postoperative day #2 Plan: L knee: -Physical therapy = ambulation, transfers, working on ROM from full extension to as much flexion as possible, protective weightbearing -disposition =patient initially wanted to be DC home with services but then changed he when she felt that she was not strong enough and social work has been attempting to obtain placement for her at local subacute rehabilitation. -Pain control -DVT prophylaxis -Medical management per primary team -From orthopedic point of view patient is cleared for DC to subacute rehabilitation -CBC/CMP -Incentive spirometry -Out of bed as much as possible with nursing staff -Hemovac drain was removed please contact me with any questions, updates, concerns [phone] Devonte Harper M.D. Orthopedic surgery Status: Acute (2) S/P knee replacement Status: Acute
[2017-06-29 11:34] LABS: SQUAMOUS EPITHIAL 1 /hpf (0-5); URINE BACTERIA RARE (<OCC); URINE BILIRUBIN NEGATIVE (NEGATIVE); URINE BLOOD NEGATIVE (NEGATIVE); URINE CLARITY Clear (Clear); URINE COLOR Straw (YELLOW); URINE GLUCOSE (UA) NORMAL (Normal); URINE LEUKOCYTE ESTERASE 1+ Leu/uL (Negative); URINE NITRATE NEGATIVE (NEGATIVE); URINE PROTEIN NEGATIVE (NEGATIVE); URINE UROBILINOGEN NORMAL mg/dL (0.2-1.0)
[2017-06-29 11:42] LABS: BASO % 0.5 % (0.0-2.0); EOS # 0.2 K/uL (0.0-0.7); EOS % 1.8 % (0.0-4.0); HEMOGLOBIN 9.6 g/dL (11.0-16.0); LYMPH # 1.2 K/uL (1.0-4.3); LYMPH % 13.9 % (20.0-40.0); MEAN CORPUSCULAR HEMOGLOBIN 29.4 pg (27.0-31.0); MEAN CORPUSCULAR HGB CONC 34.2 g/dL (33.0-37.0); MEAN PLATELET VOLUME 7.9 fL (7.2-11.7); MONO # 0.7 K/uL (0.0-0.8); MONO % 7.7 % (0.0-10.0); NEUT # 6.8 K/uL (1.8-7.0); NEUT % 76.1 % (50.0-75.0); RBC 3.28 Mil/uL (3.80-5.20); RED CELL DISTRIBUTION WIDTH 16.8 % (11.5-14.5); WHITE BLOOD COUNT 8.9 K/uL (4.8-10.8)
[2017-06-29 12:02] LABS: ALB/GLOB RATIO 1.1 (1.0-2.1); ALBUMIN 3.3 g/dL (3.5-5.0); ALT/SGPT 38 U/L (9-52); AST/SGOT 40 U/L (14-36); BLOOD UREA NITROGEN 5 mg/dL (7-17); CALCIUM 7.7 mg/dl (8.6-10.4); GFR AFRICAN-AMERICAN > 60; GFR NON-AFRICAN AMERICAN > 60
--- NOTE | 2017-06-29 12:55 | RAD ---
PROCEDURE: Left Knee Radiographs. HISTORY: Pain. No history of recent/ related trauma provided Relevant surgical history: COMPARISON: None. FINDINGS: BONES: Stable position orthopedic hardware status post recent left TKA. JOINTS: Diminution in air and fluid within soft tissues. JOINT EFFUSION: Trace fluid and air within the suprapatellar bursa improved compared to the prior study. OTHER FINDINGS: None. IMPRESSION: Improving postoperative status.
[2017-06-29] MEDS ORDERED: Potassium Chloride 20 mEq ER Tab PO ONE (13:12)
[2017-06-30 07:49] LABS: BASO # 0.1 K/uL (0.0-0.2); BASO % 0.7 % (0.0-2.0); EOS # 0.2 K/uL (0.0-0.7); EOS % 2.4 % (0.0-4.0); HEMOGLOBIN 9.3 g/dL (11.0-16.0); LYMPH # 1.2 K/uL (1.0-4.3); LYMPH % 15.2 % (20.0-40.0); MEAN CELL VOLUME 85.4 fL (81.0-99.0); MEAN CORPUSCULAR HEMOGLOBIN 28.8 pg (27.0-31.0); MEAN CORPUSCULAR HGB CONC 33.8 g/dL (33.0-37.0); MEAN PLATELET VOLUME 7.8 fL (7.2-11.7); MONO # 0.6 K/uL (0.0-0.8); MONO % 7.9 % (0.0-10.0); NEUT # 5.9 K/uL (1.8-7.0); NEUT % 73.8 % (50.0-75.0); NRBC % 0.3 % (0.0-2.0); RBC 3.23 Mil/uL (3.80-5.20); RED CELL DISTRIBUTION WIDTH 16.9 % (11.5-14.5)
--- NOTE | 2017-06-30 07:59 | PN ---
DATE:06/28/2017 SUBJECTIVE: Patient has difficulty to urinate. Straight cath was inserted. Sun Gracia MD
[2017-06-30] MEDS: (Novolog) Insulin Aspart, Recombinant 100 u/ml 10 ml vial SC SCH ×4 (08:00→21:14)
[2017-06-30] MEDS: Enoxaparin 40 mg Syringe SC SCH (08:06)
[2017-06-30 08:24] LABS: ALBUMIN 3.1 g/dL (3.5-5.0); ALT/SGPT 52 U/L (9-52); AST/SGOT 49 U/L (14-36); BLOOD UREA NITROGEN 5 mg/dL (7-17); CALCIUM 7.6 mg/dl (8.6-10.4); GFR AFRICAN-AMERICAN > 60; GFR NON-AFRICAN AMERICAN > 60; MAGNESIUM 1.8 mg/dL (1.6-2.3)
--- NOTE | 2017-06-30 09:33 | CP.PCM.PN ---
Subjective - Date & Time of Evaluation Date of Evaluation: 06/30/17 Time of Evaluation: 09:33 - Subjective Subjective: PGY-[address] Gracia's service: Pt seen and examined at bedside. Nursing reports no acute events overnight. She is POD # 5, s/p Total knee replacement. Patient states her pain is well controlled, and she feels more able to move the knee daily. Patient admits dysuria but denies itchiness, discharge, or increased frequency. Patient has been approved for [facility], but placement cannot be accepted due to the holiday. Objective - Vital Signs/Intake and Output Vital Signs (last 24 hours): Temp Pulse Resp BP Pulse Ox 98.1 F 77 20 136/81 96 06/29/17 23:20 06/29/17 23:20 06/29/17 23:20 06/29/17 23:20 06/29/17 23:20 Intake and Output: 06/30/17 06/30/17 06:59 18:59 Intake Total 100 Balance 100 - Medications Medications: Current Medications Acetaminophen (Tylenol 325mg Tab) 650 mg PO Q6 PRN PRN Reason: Fever >100.4 F Last Admin: 06/29/17 17:08 Dose: 650 mg Amlodipine Besylate (Norvasc) 5 mg PO DAILY [facility] Last Admin: 06/29/17 09:54 Dose: 5 mg Bethanechol Chloride (Urecholine) 25 mg PO BID [facility] Last Admin: 06/29/17 17:09 Dose: 25 mg Dextrose (Dextrose 50% Inj) 0 ml IVP .STAT PRN; Protocol PRN Reason: Hypoglycemia Protocol Dextrose (Glutose 15) 0 gm PO .ONCE PRN; Protocol PRN Reason: Hypoglycemia Protocol Diltiazem HCl (Cardizem) 90 mg PO DAILY [facility] Last Admin: 06/29/17 09:53 Dose: 90 mg Docusate Sodium (Colace) 100 mg PO BID [facility] Last Admin: 06/29/17 17:09 Dose: 100 mg Enoxaparin Sodium (Lovenox) 40 mg SC DAILY [facility] Last Admin: 06/29/17 09:53 Dose: 40 mg Glucagon (Glucagen Diagnostic Kit) 0 mg IM .STAT PRN; Protocol PRN Reason: Hypoglycemia Protocol Home Med (Patient's Own Medication) 0.5 tab PO BID [facility] Last Admin: 06/29/17 17:16 Dose: 0.5 tab Home Med (Patient's Own Medication) 1 tab PO DAILY [facility] Last Admin: 06/29/17 09:59 Dose: 1 tab Insulin Aspart (Novolog) 0 unit SC ACHS [facility] PRN Reason: Protocol Last Admin: 06/30/17 08:00 Dose: Not Given Morphine Sulfate (Morphine) 2 mg IV Q4 PRN PRN Reason: Pain, severe (8-10) Last Admin: 06/29/17 23:46 Dose: 2 mg Oxycodone/Acetaminophen (Percocet 5/325 Mg Tab) 2 tab PO Q4H PRN PRN Reason: Pain, moderate (4-7) Stop: 07/02/17 12:45 Potassium Chloride (K-Dur 20 Meq Er Tab) 20 meq PO DAILY [facility] Last Admin: 06/29/17 09:54 Dose: 20 meq Rosuvastatin Calcium (Crestor) 10 mg PO HS [facility] Last Admin: 06/29/17 21:44 Dose: 10 mg Sitagliptin Phosphate (Januvia) 100 mg PO DAILY [facility] Last Admin: 06/29/17 11:00 Dose: 100 mg - Labs Labs: 06/30/17 07:21 06/30/17 07:21 PT 11.7 SECONDS (9.7-12.2) 06/25/17 14:19 INR 1.0 06/25/17 14:19 APTT 23 SECONDS (21-34) 06/25/17 14:19 - Constitutional Appears: Non-toxic, No Acute Distress - Head Exam Head Exam: ATRAUMATIC, NORMAL INSPECTION - Eye Exam Eye Exam: EOMI, Normal appearance. absent: Scleral icterus - ENT Exam ENT Exam: Mucous Membranes Moist, Normal Exam - Neck Exam Neck Exam: Full ROM - Respiratory Exam Respiratory Exam: Clear to Ausculation Bilateral, NORMAL BREATHING PATTERN - Cardiovascular Exam Cardiovascular Exam: REGULAR RHYTHM, +S1, +S2 - GI/Abdominal Exam GI & Abdominal Exam: Soft, Normal Bowel Sounds. absent: Tenderness - Extremities Exam Extremities Exam: Normal Inspection - Back Exam Back Exam: absent: CVA tenderness (L), CVA tenderness (R) - Neurological Exam Neurological Exam: Alert, Awake, Oriented x3 - Psychiatric Exam Psychiatric exam: Normal Affect, Normal Mood - Skin Skin Exam: Normal Color, Warm Assessment and Plan - Assessment and Plan (Free Text) Plan: S/P left total knee replacement POD # 5: stable for discharge to rehab per Ortho - f/u in office approx 10 days call for appointment Pain well controlled, pt participating actively in PT UTI Pt c/o dysuria Urine Cx (06/28/17): Gram negative [place] Nitrofurantoin 100mg PO BID x 5 days Hypertension Well-controlled Cont Home Med HCTZ Amlodipine 5mg PO Daily Pain control Cont to monitor Heart Healthy diet Diabetes Januvia 100mg PO Daily A1c 7.2 Hypercholesteremia Crestor QHS Counseled on dietary and exercise changes Post-op urinary retention Pt denies difficulty urinating today Pt needed huang catheter post-procedure Dr. Montelongo, Urology, consulted - f/u reccs Bethenecol 25mg PO BID Hypokalemia K 3.3 on AM labs - repleted w Kdur 40mg x 2 doses f/u AM lab Hypophosphatemia Phos 2.2 on AM labs Neutra-phos pcket BID x 4 doses Monitor response Pseudo-hypocalcemia Calcium 7.6 - due to low albumin - corrected Calcium: 8.3 Monitor History of breast cancer Patient has been in remission since 2012 s/p lumpectomy Was previously taking Femara ( hormone based chemotherapy) as far back as 2016 per hospital record. Prophylactic measure SCDs to right leg No indications for GI prophylaxis at this time Lovenox 40mg SC Daily Disposition: Pt stable for discharge to rehab per ortho, however due to holiday discharge will not be until tomorrow, 07/01/17. Renzo Morales PGY-2 All medical management per Dr. Arrington
[2017-06-30] MEDS: Potassium Chloride 20 mEq ER Tab PO SCH ×2 (09:45→12:04)
[2017-06-30] MEDS: VENLAFAXINE HCL 25 MG TABLET PO SCH ×2 (10:02→18:03)
[2017-06-30] MEDS: LETROZOLE 2.5 MG TABLET PO SCH (10:04)
--- NOTE | 2017-06-30 11:52 | CP.PCM.PN ---
Subjective - Date & Time of Evaluation Date of Evaluation: 06/30/17 Time of Evaluation: 11:50 - Subjective Subjective: patient tolerating PT well. Patient has agreed to [facility], awaiting auth. Denies CP?SOB/dizziness. Objective - Vital Signs/Intake and Output Vital Signs (last 24 hours): Temp Pulse Resp BP Pulse Ox 97.7 F 87 20 114/68 97 06/30/17 09:59 06/30/17 09:59 06/30/17 09:59 06/30/17 09:59 06/30/17 09:59 Intake and Output: 06/30/17 06/30/17 06:59 18:59 Intake Total 100 Balance 100 - Medications Medications: Current Medications Acetaminophen (Tylenol 325mg Tab) 650 mg PO Q6 PRN PRN Reason: Fever >100.4 F Last Admin: 06/29/17 17:08 Dose: 650 mg Amlodipine Besylate (Norvasc) 5 mg PO DAILY [facility] Last Admin: 06/29/17 09:54 Dose: 5 mg Bethanechol Chloride (Urecholine) 25 mg PO BID [facility] Last Admin: 06/29/17 17:09 Dose: 25 mg Dextrose (Dextrose 50% Inj) 0 ml IVP .STAT PRN; Protocol PRN Reason: Hypoglycemia Protocol Dextrose (Glutose 15) 0 gm PO .ONCE PRN; Protocol PRN Reason: Hypoglycemia Protocol Diltiazem HCl (Cardizem) 90 mg PO DAILY [facility] Last Admin: 06/29/17 09:53 Dose: 90 mg Docusate Sodium (Colace) 100 mg PO BID [facility] Last Admin: 06/29/17 17:09 Dose: 100 mg Enoxaparin Sodium (Lovenox) 40 mg SC DAILY [facility] Last Admin: 06/29/17 09:53 Dose: 40 mg Glucagon (Glucagen Diagnostic Kit) 0 mg IM .STAT PRN; Protocol PRN Reason: Hypoglycemia Protocol Home Med (Patient's Own Medication) 0.5 tab PO BID [facility] Last Admin: 06/29/17 17:16 Dose: 0.5 tab Home Med (Patient's Own Medication) 1 tab PO DAILY [facility] Last Admin: 06/29/17 09:59 Dose: 1 tab Insulin Aspart (Novolog) 0 unit SC ACHS [facility] PRN Reason: Protocol Last Admin: 06/30/17 08:00 Dose: Not Given Morphine Sulfate (Morphine) 2 mg IV Q4 PRN PRN Reason: Pain, severe (8-10) Last Admin: 06/29/17 23:46 Dose: 2 mg Oxycodone/Acetaminophen (Percocet 5/325 Mg Tab) 2 tab PO Q4H PRN PRN Reason: Pain, moderate (4-7) Stop: 07/02/17 12:45 Rosuvastatin Calcium (Crestor) 10 mg PO HS [facility] Last Admin: 06/29/17 21:44 Dose: 10 mg Sitagliptin Phosphate (Januvia) 100 mg PO DAILY [facility] Last Admin: 06/29/17 11:00 Dose: 100 mg - Labs Labs: 06/30/17 07:21 06/30/17 07:21 PT 11.7 SECONDS (9.7-12.2) 06/25/17 14:19 INR 1.0 06/25/17 14:19 APTT 23 SECONDS (21-34) 06/25/17 14:19 - Extremities Exam Additional comments: +ROM ankle/toes, sensation intact LLE, calves soft NT neg homans, knee immob intact +DP pulse Assessment and Plan (1) Primary osteoarthritis of left knee Assessment & Plan: POD#5 s/p left TKR ortho stable for d/c to rehab, awaiting auth urine cx [id number] E. coli, defer to medical team if treatment indicated cont PT/OT/VTE proph f/u in office approx 10 days call for appointment d/w Dr. Harper, agreesw ith above Status: Acute (2) Acute blood loss anemia Assessment & Plan: hemodynamically stable, no treatment indicated Status: Acute
[2017-06-30] MEDS: Oxycodone/Acetaminophen 5/325 mg Tab PO PRN ×2 (13:48→21:54)
[2017-06-30] MEDS ORDERED: Potassium & Sodium Phosphate PO SCH (18:00)
--- NOTE | 2017-06-30 23:07 | CP.PCM.CON ---
History of Present Illness - History of Present Illness History of Present Illness: cc: urinary retention Past Patient History - Past Medical History & Family History Past Medical History?: Yes - Past Social History Smoking Status: Never Smoked - CARDIAC Hx Cardiac Disorders: Yes Hx Hypercholesterolemia: Yes Hx Hypertension: Yes - PULMONARY Hx Respiratory Disorders: No - NEUROLOGICAL Hx Neurological Disorder: No - HEENT Other/Comment: wear glasses for poor vision - RENAL Hx Chronic Kidney Disease: No - ENDOCRINE/METABOLIC Hx Diabetes Mellitus Type 2: Yes - HEMATOLOGICAL/ONCOLOGICAL Hx Blood Disorders: Yes Hx Cancer: Yes (RIGHT BREAST) Other/Comment: 11/28/15-PT. REPORTS ON ORAL CHEMO DRUGS TO LAST SEVERAL YEARS. - INTEGUMENTARY Hx Dermatological Problems: Yes Other/Comment: HX: RIGHT BREAST CANCER - MUSCULOSKELETAL/RHEUMATOLOGICAL Hx Arthritis: Yes - GASTROINTESTINAL Hx Gastrointestinal Disorders: No - GENITOURINARY/GYNECOLOGICAL Hx Genitourinary Disorders: Yes Hx Urinary Tract Infection: Yes (PAT URINE C/S REPORTED TO DR CHAMPION OFFICE STS PT PLACED ON ANTIBIOTICS) - PSYCHIATRIC Hx Substance Use: No - SURGICAL HISTORY Hx Surgeries: Yes Hx Breast Biopsy: Yes Hx Cardiac Catheterization: Yes Hx Mastectomy: Yes (lumpectomy right) Hx Musculoskeletal Surgery: Yes Hx Orthopedic Surgery: Yes (bilat hands tendon sx left ankle spur removal plates ) Other/Comment: HX: RIGHT TRIGGER FINGER(S) X3 RELEASED. HX: ARTHROSCOPIC LEFT KNEE TORN LIGAMENT REPAIR. HX: RIGHT BREAST LUMPECTOMY-CANCER. - ANESTHESIA Hx Anesthesia: Yes Hx Anesthesia Reactions: No Hx Malignant Hyperthermia: No Has any member of the family had a problem w/ anesthesia?: No Meds Allergies/Adverse Reactions: Allergies Allergy/AdvReac Type Severity Reaction Status Date / Time No Known Allergies Allergy Verified 11/28/15 11:26 - Medications Medications: Current Medications Acetaminophen (Tylenol 325mg Tab) 650 mg PO Q6 PRN PRN Reason: Fever >100.4 F Last Admin: 06/29/17 17:08 Dose: 650 mg Amlodipine Besylate (Norvasc) 5 mg PO DAILY [facility] Last Admin: 06/30/17 10:01 Dose: 5 mg Bethanechol Chloride (Urecholine) 25 mg PO BID [facility] Last Admin: 06/30/17 18:07 Dose: Not Given Dextrose (Dextrose 50% Inj) 0 ml IVP .STAT PRN; Protocol PRN Reason: Hypoglycemia Protocol Dextrose (Glutose 15) 0 gm PO .ONCE PRN; Protocol PRN Reason: Hypoglycemia Protocol Diltiazem HCl (Cardizem) 90 mg PO DAILY [facility] Last Admin: 06/30/17 10:56 Dose: 90 mg Docusate Sodium (Colace) 100 mg PO BID [facility] Last Admin: 06/30/17 18:02 Dose: 100 mg Enoxaparin Sodium (Lovenox) 40 mg SC DAILY [facility] Last Admin: 06/30/17 08:06 Dose: 40 mg Glucagon (Glucagen Diagnostic Kit) 0 mg IM .STAT PRN; Protocol PRN Reason: Hypoglycemia Protocol Home Med (Patient's Own Medication) 0.5 tab PO BID [facility] Last Admin: 06/30/17 18:03 Dose: 0.5 tab Home Med (Patient's Own Medication) 1 tab PO DAILY [facility] Last Admin: 06/30/17 10:04 Dose: 1 tab Insulin Aspart (Novolog) 0 unit SC ACHS [facility] PRN Reason: Protocol Last Admin: 06/30/17 21:14 Dose: Not Given Morphine Sulfate (Morphine) 2 mg IV Q4 PRN PRN Reason: Pain, severe (8-10) Last Admin: 06/29/17 23:46 Dose: 2 mg Nitrofurantoin Macrocrystals (Macrobid) 100 mg PO BID [facility] Stop: 07/05/17 18:01 Last Admin: 06/30/17 18:03 Dose: 100 mg Oxycodone/Acetaminophen (Percocet 5/325 Mg Tab) 2 tab PO Q4H PRN PRN Reason: Pain, moderate (4-7) Stop: 07/02/17 12:45 Last Admin: 06/30/17 21:54 Dose: 2 tab Potassium Phos/Sodium Phos (Neutra-Phos) 1 pkt PO BID [facility] Stop: 07/02/17 10:01 Last Admin: 06/30/17 18:03 Dose: 1 pkt Rosuvastatin Calcium (Crestor) 10 mg PO HS [facility] Last Admin: 06/30/17 21:12 Dose: 10 mg Sitagliptin Phosphate (Januvia) 100 mg PO DAILY [facility] Last Admin: 06/30/17 10:58 Dose: 100 mg Results - Vital Signs Recent Vital Signs: Last Vital Signs Temp 98.2 F 06/30/17 15:46 Pulse 83 06/30/17 15:46 Resp 18 06/30/17 15:46 BP 104/63 06/30/17 15:46 Pulse Ox 97 06/30/17 15:46 - Labs Result Diagrams: 06/30/17 07:21 06/30/17 07:21 Labs: Laboratory Results - last 24 hr 06/30/17 06/30/17 06/30/17 06:51 07:21 07:21 WBC 8.0 RBC 3.23 L Hgb 9.3 L Hct 27.6 L MCV 85.4 MCH 28.8 MCHC 33.8 RDW 16.9 H Plt Count 302 MPV 7.8 Neut % (Auto) 73.8 Lymph % (Auto) 15.2 L [place] % (Auto) 7.9 Eos % (Auto) 2.4 Baso % (Auto) 0.7 Neut # 5.9 Lymph # 1.2 [place] # 0.6 Eos # 0.2 Baso # 0.1 Sodium 134 Potassium 3.3 L Chloride 103 Carbon Dioxide 26 Anion Gap 9 L BUN 5 L Creatinine 0.4 L Est GFR ( Amer) > 60 Est GFR (Non-Af Amer) > 60 POC Glucose (mg/dL) 142 H Random Glucose 145 H Calcium 7.6 L Phosphorus 2.2 L Magnesium 1.8 Total Bilirubin 1.2 AST 49 H D ALT 52 D Alkaline Phosphatase 218 H D Total Protein 6.3 Albumin 3.1 L Globulin 3.1 Albumin/Globulin Ratio 1.0 06/30/17 06/30/17 06/30/17 11:21 16:32 20:46 WBC RBC Hgb Hct MCV MCH MCHC RDW Plt Count MPV Neut % (Auto) Lymph % (Auto) [place] % (Auto) Eos % (Auto) Baso % (Auto) Neut # Lymph # [place] # Eos # Baso # Sodium Potassium Chloride Carbon Dioxide Anion Gap BUN Creatinine Est GFR ( Amer) Est GFR (Non-Af Amer) POC Glucose (mg/dL) 170 H 194 H 162 H Random Glucose Calcium Phosphorus Magnesium Total Bilirubin AST ALT Alkaline Phosphatase Total Protein Albumin Globulin Albumin/Globulin Ratio Assessment & Plan - Assessment and Plan (Free Text) Assessment: Urinary retention Obstipation S/p orthopedic surgery Full note to be dictated - Date & Time Date: 06/30/17 Time: 12:30
[2017-07-01 01:30] VITALS: RESP 20
[2017-07-01 07:38] LABS: BASO # 0.1 K/uL (0.0-0.2); EOS # 0.3 K/uL (0.0-0.7); EOS % 3.9 % (0.0-4.0); HEMOGLOBIN 9.7 g/dL (11.0-16.0); LYMPH # 2.2 K/uL (1.0-4.3); LYMPH % 25.6 % (20.0-40.0); MEAN CELL VOLUME 86.2 fL (81.0-99.0); MEAN CORPUSCULAR HEMOGLOBIN 29.1 pg (27.0-31.0); MEAN CORPUSCULAR HGB CONC 33.8 g/dL (33.0-37.0); MONO # 0.8 K/uL (0.0-0.8); MONO % 9.8 % (0.0-10.0); NEUT % 59.7 % (50.0-75.0); NRBC % 0.3 % (0.0-2.0); RBC 3.34 Mil/uL (3.80-5.20); WHITE BLOOD COUNT 8.4 K/uL (4.8-10.8)
[2017-07-01] MEDS: (Novolog) Insulin Aspart, Recombinant 100 u/ml 10 ml vial SC SCH ×3 (07:58→18:06)
[2017-07-01 08:08] LABS: ALBUMIN 3.2 g/dL (3.5-5.0); ALT/SGPT 57 U/L (9-52); AST/SGOT 41 U/L (14-36); BLOOD UREA NITROGEN 11 mg/dL (7-17); CALCIUM 8.1 mg/dl (8.6-10.4); GFR AFRICAN-AMERICAN > 60; GFR NON-AFRICAN AMERICAN > 60; MAGNESIUM 1.8 mg/dL (1.6-2.3)
--- NOTE | 2017-07-01 08:09 | CP.PCM.PN ---
Subjective - Date & Time of Evaluation Date of Evaluation: 07/01/17 Time of Evaluation: 08:05 - Subjective Subjective: PGY-[address] Gracia's service: Pt seen and examined at bedside. Nursing reports no acute events overnight. She is POD # 6, s/p Total knee replacement. Patient reports she was up "walking alot " yesterday and reports knee is swollen today. She denies pain in the knee, and is able to move the extremity without difficulty. She denies any burning during urination or problems voiding. She is marked for discharge to rehab today pending authorization. Objective - Vital Signs/Intake and Output Vital Signs (last 24 hours): Temp Pulse Resp BP Pulse Ox 98.0 F 76 20 130/79 95 06/30/17 23:15 06/30/17 23:15 06/30/17 23:15 06/30/17 23:15 06/30/17 23:15 Intake and Output: 07/01/17 07/01/17 06:59 18:59 Intake Total 200 Balance 200 - Medications Medications: Current Medications Acetaminophen (Tylenol 325mg Tab) 650 mg PO Q6 PRN PRN Reason: Fever >100.4 F Last Admin: 06/29/17 17:08 Dose: 650 mg Amlodipine Besylate (Norvasc) 5 mg PO DAILY [facility] Last Admin: 06/30/17 10:01 Dose: 5 mg Bethanechol Chloride (Urecholine) 25 mg PO BID [facility] Last Admin: 06/30/17 18:07 Dose: Not Given Dextrose (Dextrose 50% Inj) 0 ml IVP .STAT PRN; Protocol PRN Reason: Hypoglycemia Protocol Dextrose (Glutose 15) 0 gm PO .ONCE PRN; Protocol PRN Reason: Hypoglycemia Protocol Diltiazem HCl (Cardizem) 90 mg PO DAILY [facility] Last Admin: 06/30/17 10:56 Dose: 90 mg Docusate Sodium (Colace) 100 mg PO BID [facility] Last Admin: 06/30/17 18:02 Dose: 100 mg Enoxaparin Sodium (Lovenox) 40 mg SC DAILY [facility] Last Admin: 06/30/17 08:06 Dose: 40 mg Glucagon (Glucagen Diagnostic Kit) 0 mg IM .STAT PRN; Protocol PRN Reason: Hypoglycemia Protocol Home Med (Patient's Own Medication) 0.5 tab PO BID [facility] Last Admin: 06/30/17 18:03 Dose: 0.5 tab Home Med (Patient's Own Medication) 1 tab PO DAILY [facility] Last Admin: 06/30/17 10:04 Dose: 1 tab Insulin Aspart (Novolog) 0 unit SC ACHS [facility] PRN Reason: Protocol Last Admin: 07/01/17 07:58 Dose: Not Given Morphine Sulfate (Morphine) 2 mg IV Q4 PRN PRN Reason: Pain, severe (8-10) Last Admin: 06/30/17 23:50 Dose: 2 mg Nitrofurantoin Macrocrystals (Macrobid) 100 mg PO BID [facility] Stop: 07/05/17 18:01 Last Admin: 06/30/17 18:03 Dose: 100 mg Oxycodone/Acetaminophen (Percocet 5/325 Mg Tab) 2 tab PO Q4H PRN PRN Reason: Pain, moderate (4-7) Stop: 07/02/17 12:45 Last Admin: 06/30/17 21:54 Dose: 2 tab Potassium Phos/Sodium Phos (Neutra-Phos) 1 pkt PO BID [facility] Stop: 07/02/17 10:01 Last Admin: 06/30/17 18:03 Dose: 1 pkt Rosuvastatin Calcium (Crestor) 10 mg PO HS [facility] Last Admin: 06/30/17 21:12 Dose: 10 mg Sitagliptin Phosphate (Januvia) 100 mg PO DAILY [facility] Last Admin: 06/30/17 10:58 Dose: 100 mg - Labs Labs: 07/01/17 07:22 06/30/17 07:21 PT 11.7 SECONDS (9.7-12.2) 06/25/17 14:19 INR 1.0 06/25/17 14:19 APTT 23 SECONDS (21-34) 06/25/17 14:19 - Constitutional Appears: Non-toxic, No Acute Distress - Head Exam Head Exam: ATRAUMATIC, NORMAL INSPECTION - Eye Exam Eye Exam: EOMI, Normal appearance Pupil Exam: PERRL - ENT Exam ENT Exam: Mucous Membranes Moist - Neck Exam Neck Exam: Full ROM - Respiratory Exam Respiratory Exam: Clear to Ausculation Bilateral, NORMAL BREATHING PATTERN. absent: Rales, Rhonchi, Wheezes - Cardiovascular Exam Cardiovascular Exam: REGULAR RHYTHM, +S1, +S2 - GI/Abdominal Exam GI & Abdominal Exam: Soft, Normal Bowel Sounds. absent: Tenderness - Extremities Exam Extremities Exam: Normal Capillary Refill, Pedal Edema. absent: Calf Tenderness , Normal Inspection Additional comments: Mild edema around knee joint Pt on CPM Negative sonal sign, no calf tenderness light touch intact - Back Exam Back Exam: absent: CVA tenderness (L), CVA tenderness (R) - Neurological Exam Neurological Exam: Alert, Awake, Oriented x3 - Psychiatric Exam Psychiatric exam: Normal Affect, Normal Mood - Skin Skin Exam: Dry, Normal Color, Warm Assessment and Plan - Assessment and Plan (Free Text) Plan: S/P left total knee replacement POD # 6: stable for discharge to rehab per Ortho - f/u in office approx 10 days call for appointment Pain well controlled, pt participating actively in PT UTI (ESBL positive) Pt denies dysuria this AM Urine Cx (06/28/17): E. Coli - ESBL positive ID consult, Dr. Nichols - Merrem 500mg Q8H x 5 days Post-op urinary retention Pt denies difficulty urinating today Pt needed straight catheterization twice post-procedure Dr. Montelongo, Urology, consulted - most likely caused post-surgery/pain medication - Bethenecol can be discontinued; continue UTI treatment Hypertension Well-controlled Cont Home Med HCTZ Amlodipine 5mg PO Daily Pain control Cont to monitor Heart Healthy diet Diabetes Januvia 100mg PO Daily A1c 7.2 Hypercholesteremia Crestor QHS Counseled on dietary and exercise changes Hypokalemia Resolved Hypophosphatemia Resolved Pseudo-hypocalcemia Calcium 8.1 today - due to low albumin - corrected Calcium WNL Monitor History of breast cancer Patient has been in remission since 2012 s/p lumpectomy Was previously taking Femara ( hormone based chemotherapy) as far back as 2016 per hospital record. Prophylactic measure SCDs to right leg No indications for GI prophylaxis at this time Lovenox 40mg SC Daily Disposition: Pt stable for discharge to rehab per ortho, urology, and ID, only pending approval from insurance. Renzo Morales PGY-2 All medical management per Dr. Gracia
[2017-07-01] MEDS: VENLAFAXINE HCL 25 MG TABLET PO SCH ×2 (10:16→17:49)
[2017-07-01] MEDS: Enoxaparin 40 mg Syringe SC SCH (10:16)
[2017-07-01] MEDS: LETROZOLE 2.5 MG TABLET PO SCH (10:17)
--- NOTE | 2017-07-01 10:39 | CP.PCM.CON ---
History of Present Illness - History of Present Illness History of Present Illness: 61 yo female adm for left TKR post op course complicated by urinary retention and ESBL+ E Coli UTI PMH obesity, DMII, OA Review of Systems - Constitutional Constitutional: As Per HPI - EENT Eyes: absent: As Per HPI, Blind Spots, Blurred Vision, Change in Vision, Decreased Night Vision, Diplopia, Discharge, Dry Eye, Exophthalmos, Floaters, Irritation, Itchy Eyes, Loss of Peripheral Vision, Pain, Photophobia, Requires Corrective Lenses, Sees Flashes, Spots in Vision, Tunnel Vision, Other Visual Disturbances, Loss of Vision, Other Ears: absent: As Per HPI, Decreased Hearing, Ear Discharge, Ear Pain, Tinnitus, Abnormal Hearing, Disequilibrium, Dizziness, Other Nose/Mouth/Throat: absent: As Per HPI, Epistaxis, Nasal Congestion, Nasal Discharge, Nasal Obstruction, Nasal Trauma, Nose Pain, Post Nasal Drip, Sinus Pain, Sinus Pressure, Bleeding Gums, Change in Voice, Dental Pain, Dry Mouth, Dysphagia, Halitosis, Hoarsness, Lip Swelling, Mouth Lesions, Mouth Pain, Odynophagia, Sore Throat, Throat Swelling, Tongue Swelling, Facial Pain, Neck Pain, Neck Mass, Other - Breasts Breasts: absent: As Per HPI, Change in Shape, Mass, Pain, Nipple Discharge, Nipple Inversion, Skin Changes, Swelling, Other - Cardiovascular Cardiovascular: absent: As Per HPI, Acrocyanosis, Chest Pain, Chest Pain at Rest , Chest Pain with Activity, Claudication, Diaphoresis, Dyspnea, Dyspnea on Exertion, Edema, Irregular Heart Rhythm, Pain Radiating to Arm/Neck/Jaw, Leg Edema, Leg Ulcers, Lightheadedness, Orthopnea, Palpitations, Paroxysmal Nocturnal Dyspnea, Pedal Edema, Radiating Pain, Rapid Heart Rate, Slow Heart Rate, Syncope, Other - Respiratory Respiratory: absent: As Per HPI, Cough, Dyspnea, Hemoptysis, Dyspnea on Exertion , Wheezing, Snoring, Stridor, Pain on Inspiration, Chest Congestion, Excessive Mucous Production, Change in Mucous Color, Pain with Coughing, Other - Gastrointestinal Gastrointestinal: absent: As Per HPI, Abdominal Pain, Belching, Bloating, Change in Bowel Habits, Change in Stool Character, Coffee Ground Emesis, Constipation, Cramping, Diarrhea, Dyspepsia, Dysphagia, Early Satiety, Excessive Flatus, Fecal Incontinence, Heartburn, Hematemesis, Hematochezia, Loose Stools, Melena, Nausea, Odynophagia, Temesmus, Vomiting, Other - Genitourinary Genitourinary: As Per HPI - Reproductive: Female Reproductive:Female: absent: As Per HPI, Amenorrhea, Amenorrhea/ Control, Currently Menstual, Cycle <21 Days, Cycle >35 Days, Cycle Variable, Menses 1-7 Days, Menses >/= 8 Days, Menses Variable, Cycle > 4 Weeks Between, No Menses for 6 Months, Heavy Menses, Light Menses, Normal Menses, Spotting Between Cycles , S/P Hysterectomy, Menopausal, Post Menopausal, Premenarche, Abnormal Vaginal Bleeding, Dysmenorrhea, Dyspareunia, Genital Lesions, Genital Pruritis, Pelvic Pain, Prolapse Symptoms, Sexual Dysfunction, Vaginal Discharge, Vaginal Dryness , Vaginal Odor, Vaginal Pruritis, Other - Menstruation Menstruation: absent: As Per HPI, Amenorrhea, Amenorrhea/ Control, Currently Menstual, Cycle <21 Days, Cycle >35 Days, Cycle Variable, Menses 1-7 Days, Menses >/= 8 Days, Menses Variable, Cycle > 4 Weeks Between, No Menses for 6 Months, Heavy Menses, Light Menses, Normal Menses, Spotting Between Cycles , S/P Hysterectomy, Menopausal, Post Menopausal, Premenarche, Abnormal Vaginal Bleeding, Dysmenorrhea, Other - Musculoskeletal Musculoskeletal: As Per HPI - Integumentary Integumentary: absent: As Per HPI, Acne, Alopecia, Bleeding Lesions, Change in Hair, Change in Nails, Change in Pigmentation, Changing Lesions, Dry Skin, Erythema, Furuncle, Hirsutism, Lesions, New Lesions, Non-Healing Lesions, Photosensitivity, Pruritus, Rash, Skin Pain, Skin Ulcer, Sores, Striae, Swelling , Unusual Bruising, Wounds, Jaundice, Other - Neurological Neurological: absent: As Per HPI, Abnormal Gait, Abnormal Hearing, Abnormal Movements, Abnormal Speech, Behavioral Changes, Burning Sensations, Confusion, Convulsions, Disequilibrium, Dizziness, Numbness, Focal Weakness, Frequent Falls , Headaches, Lack of Coordination, Loss of Vision, Memory Loss, Paresthesias, Radicular Pain, Restless Legs, Sensory Deficit, Syncope, Tingling, Tremor, Vertigo, Weakness, Other Visual Disturbances, Other - Psychiatric Psychiatric: absent: As Per HPI, Abnormal Sleep Pattern, Anhedonia, Anxiety, Auditory Hallucinations, Behavioral Changes, Change in Appetite, Change in Libido, Confusion, Depression, Difficulty Concentrating, Hallucinations, Homicidal Ideation, Hopelessness, Irritability, Memory Loss, Mood Swings, Panic Attacks, Paranoia, Suicidal Ideation, Visual Hallucinations, Tactile Hallucinations, Other - Endocrine Endocrine: absent: As Per HPI, Change in Body Appearance, Change in Libido, Cold Intolorance, Deepening of Voice, Excessive Sweating, Fatigue, Flushing, Heat Intolorance, Increase in Ring/Shoe/Hat Size, Palpitations, Polydipsia, Polyphagia, Polyuria, Other - Hematologic/Lymphatic Hematologic: absent: As Per HPI, Easy Bleeding, Easy Bruising, Lymphadenopathy, Other Past Patient History - Past Medical History & Family History Past Medical History?: Yes - Past Social History Smoking Status: Never Smoked - CARDIAC Hx Cardiac Disorders: Yes Hx Hypercholesterolemia: Yes Hx Hypertension: Yes - PULMONARY Hx Respiratory Disorders: No - NEUROLOGICAL Hx Neurological Disorder: No - HEENT Other/Comment: wear glasses for poor vision - RENAL Hx Chronic Kidney Disease: No - ENDOCRINE/METABOLIC Hx Diabetes Mellitus Type 2: Yes - HEMATOLOGICAL/ONCOLOGICAL Hx Blood Disorders: Yes Hx Cancer: Yes (RIGHT BREAST) Other/Comment: 11/28/15-PT. REPORTS ON ORAL CHEMO DRUGS TO LAST SEVERAL YEARS. - INTEGUMENTARY Hx Dermatological Problems: Yes Other/Comment: HX: RIGHT BREAST CANCER - MUSCULOSKELETAL/RHEUMATOLOGICAL Hx Arthritis: Yes - GASTROINTESTINAL Hx Gastrointestinal Disorders: No - GENITOURINARY/GYNECOLOGICAL Hx Genitourinary Disorders: Yes Hx Urinary Tract Infection: Yes (PAT URINE C/S REPORTED TO DR CHAMPION OFFICE STS PT PLACED ON ANTIBIOTICS) - PSYCHIATRIC Hx Substance Use: No - SURGICAL HISTORY Hx Surgeries: Yes Hx Breast Biopsy: Yes Hx Cardiac Catheterization: Yes Hx Mastectomy: Yes (lumpectomy right) Hx Musculoskeletal Surgery: Yes Hx Orthopedic Surgery: Yes (bilat hands tendon sx left ankle spur removal plates ) Other/Comment: HX: RIGHT TRIGGER FINGER(S) X3 RELEASED. HX: ARTHROSCOPIC LEFT KNEE TORN LIGAMENT REPAIR. HX: RIGHT BREAST LUMPECTOMY-CANCER. - ANESTHESIA Hx Anesthesia: Yes Hx Anesthesia Reactions: No Hx Malignant Hyperthermia: No Has any member of the family had a problem w/ anesthesia?: No Meds Allergies/Adverse Reactions: Allergies Allergy/AdvReac Type Severity Reaction Status Date / Time No Known Allergies Allergy Verified 11/28/15 11:26 - Medications Medications: Current Medications Acetaminophen (Tylenol 325mg Tab) 650 mg PO Q6 PRN PRN Reason: Fever >100.4 F Last Admin: 06/29/17 17:08 Dose: 650 mg Amlodipine Besylate (Norvasc) 5 mg PO DAILY [facility] Last Admin: 07/01/17 10:16 Dose: 5 mg Dextrose (Dextrose 50% Inj) 0 ml IVP .STAT PRN; Protocol PRN Reason: Hypoglycemia Protocol Dextrose (Glutose 15) 0 gm PO .ONCE PRN; Protocol PRN Reason: Hypoglycemia Protocol Diltiazem HCl (Cardizem) 90 mg PO DAILY [facility] Last Admin: 07/01/17 10:17 Dose: 90 mg Docusate Sodium (Colace) 100 mg PO BID [facility] Last Admin: 07/01/17 10:16 Dose: 100 mg Enoxaparin Sodium (Lovenox) 40 mg SC DAILY [facility] Last Admin: 07/01/17 10:16 Dose: 40 mg Glucagon (Glucagen Diagnostic Kit) 0 mg IM .STAT PRN; Protocol PRN Reason: Hypoglycemia Protocol Home Med (Patient's Own Medication) 0.5 tab PO BID [facility] Last Admin: 07/01/17 10:16 Dose: 0.5 tab Home Med (Patient's Own Medication) 1 tab PO DAILY [facility] Last Admin: 07/01/17 10:17 Dose: 1 tab Insulin Aspart (Novolog) 0 unit SC ACHS [facility] PRN Reason: Protocol Last Admin: 07/01/17 07:58 Dose: Not Given Morphine Sulfate (Morphine) 2 mg IV Q4 PRN PRN Reason: Pain, severe (8-10) Last Admin: 06/30/17 23:50 Dose: 2 mg Nitrofurantoin Macrocrystals (Macrobid) 100 mg PO BID [facility] Stop: 07/05/17 18:01 Last Admin: 07/01/17 10:16 Dose: 100 mg Oxycodone/Acetaminophen (Percocet 5/325 Mg Tab) 2 tab PO Q4H PRN PRN Reason: Pain, moderate (4-7) Stop: 07/02/17 12:45 Last Admin: 06/30/17 21:54 Dose: 2 tab Rosuvastatin Calcium (Crestor) 10 mg PO HS [facility] Last Admin: 06/30/17 21:12 Dose: 10 mg Sitagliptin Phosphate (Januvia) 100 mg PO DAILY [facility] Last Admin: 07/01/17 10:16 Dose: 100 mg Physical Exam - Constitutional Appears: Non-toxic, Chronically Ill - Head Exam Head Exam: NORMOCEPHALIC - Eye Exam Eye Exam: PERRL. absent: Scleral icterus - ENT Exam ENT Exam: Mucous Membranes Dry, Normal External Ear Exam - Neck Exam Neck exam: Negative for: Lymphadenopathy - Respiratory Exam Respiratory Exam: Decreased Breath Sounds - Cardiovascular Exam Cardiovascular Exam: REGULAR RHYTHM - GI/Abdominal Exam GI & Abdominal Exam: Diminished Bowel Sounds - Rectal Exam Rectal Exam: Deferred - Exam Exam: NORMAL INSPECTION - Extremities Exam Extremities exam: Negative for: pedal edema - Back Exam Back exam: absent: CVA tenderness (L), CVA tenderness (R) - Neurological Exam Neurological exam: Alert, CN II-XII Intact, Oriented x3, Reflexes Normal - Psychiatric Exam Psychiatric exam: Normal Mood - Skin Skin Exam: Dry Results - Vital Signs Recent Vital Signs: Last Vital Signs Temp 98.3 F 07/01/17 08:10 Pulse 73 07/01/17 08:10 Resp 20 07/01/17 08:10 BP 135/79 07/01/17 08:10 Pulse Ox 95 07/01/17 08:10 - Labs Result Diagrams: 07/01/17 07:22 07/01/17 07:22 Labs: Laboratory Results - last 24 hr 06/30/17 06/30/17 06/30/17 11:21 16:32 20:46 WBC RBC Hgb Hct MCV MCH MCHC RDW Plt Count MPV Neut % (Auto) Lymph % (Auto) [place] % (Auto) Eos % (Auto) Baso % (Auto) Neut # Lymph # [place] # Eos # Baso # Sodium Potassium Chloride Carbon Dioxide Anion Gap BUN Creatinine Est GFR ( Amer) Est GFR (Non-Af Amer) POC Glucose (mg/dL) 170 H 194 H 162 H Random Glucose Calcium Phosphorus Magnesium Total Bilirubin AST ALT Alkaline Phosphatase Total Protein Albumin Globulin Albumin/Globulin Ratio 07/01/17 07/01/17 07/01/17 06:33 07:22 07:22 WBC 8.4 RBC 3.34 L Hgb 9.7 L Hct 28.8 L MCV 86.2 MCH 29.1 MCHC 33.8 RDW 17.0 H Plt Count 338 MPV 8.0 Neut % (Auto) 59.7 Lymph % (Auto) 25.6 [place] % (Auto) 9.8 Eos % (Auto) 3.9 Baso % (Auto) 1.0 Neut # 5.0 Lymph # 2.2 [place] # 0.8 Eos # 0.3 Baso # 0.1 Sodium 136 Potassium 3.9 Chloride 103 Carbon Dioxide 25 Anion Gap 12 BUN 11 Creatinine 0.5 L Est GFR ( Amer) > 60 Est GFR (Non-Af Amer) > 60 POC Glucose (mg/dL) 141 H Random Glucose 140 H Calcium 8.1 L Phosphorus 3.6 Magnesium 1.8 Total Bilirubin 0.8 AST 41 H ALT 57 H Alkaline Phosphatase 228 H Total Protein 6.4 Albumin 3.2 L Globulin 3.2 Albumin/Globulin Ratio 1.0 Assessment & Plan - Assessment and Plan (Free Text) Plan: UTI s/p Left TKR ESBL+ add Merrem
[2017-07-01] MEDS: Oxycodone/Acetaminophen 5/325 mg Tab PO PRN (11:54)
[2017-07-01] MEDS ORDERED: Meropenem 500 MG in Sodium Chloride 0.9% 100 ML IVPB SCH (14:00)
--- NOTE | 2017-07-01 14:53 | CON ---
DATE: UROLOGY CONSULTATION UROLOGY CONSULTATION WAS REQUESTED BY: . UROLOGY CONSULTATION WAS FILLED BY: Devorah Montelongo MD REASON FOR CONSULTATION: Urinary retention. HISTORY OF PRESENT ILLNESS: The patient is a 61-year-old female with urinary retention. The patient is in otherwise fair health. The patient has had orthopedic surgery performed last week. She has had multiple episodes of urinary retention since then. She has had a Mccarty catheter inserted. The patient previously voided with good urinary stream, good control. She has occasional urinary frequency. No history of urinary tract infection, no history of urolithiasis. No flank pain. No hematuria. The patient reports no stress incontinence. The patient reports that she has had obstipation since admission and since the surgery. There is history of hypertension and diabetes. The patient reports that she has been mostly in bed since this admission. She has begun ambulation. The patient has had the catheter removed. She reports that she is actually voiding better at present. The patient has fair to good urinary stream. She has good urinary control. PHYSICAL EXAMINATION GENERAL: The patient is well-developed, well-nourished middle-aged female. The patient appears of stated age. The patient is awake and alert. ABDOMEN: Soft, nontender, nondistended. No mass or organomegaly. BACK: No CVA tenderness. LABORATORY DATA: Laboratory data reviewed. Chart is reviewed as well. IMPRESSION: The patient has history of urinary retention postoperatively. The patient now reports that she is improved. RECOMMENDATIONS AND PLAN: Scheduled voiding. Assisted and prompted voiding. Monitor urine output. I would recommend obtaining urine culture and urinalysis. Further therapy to follow according to the patient's clinical course. Possible need for further urologic intervention according to clinical course. Thank you for recommending the patient for urology consultation. Devorah Montelongo MD
[2017-07-01 16:13] VITALS: BP 114/65; PULSE 72; TEMP 98.1; O2SAT 96
--- NOTE | 2017-07-05 23:11 | OP ---
PROCEDURE DATE: 06/25/2017 PREOPERATIVE DIAGNOSES: Left knee, 1. Degenerative joint disease. 2. Varus deformity. 3. Synovitis. 4. Multiple loose bodies. POSTOPERATIVE DIAGNOSES: Left knee, 1. Degenerative joint disease. 2. Varus deformity. 3. Synovitis. 4. Multiple loose bodies. PROCEDURE: Left knee, 1. Total knee arthroplasty. 2. Open extensive synovectomy, anterior. 3. Open removal of multiple loose bodies. SURGEON: Devonte Harper MD. FLY WORKER: Hari Lance PA-C. JUSTIFICATION FOR FLY WORKER: Hari Lance is a certified physician assistant prosecuting attorney whose skilled surgical services was an absolute necessity for successful completion of the procedure as he provided skilled surgical assistance with positioning of the patient, positioning of extremity, management of surgical raines, retraction of neurovascular structures, preparations of distal femur, proximal tibia and patella cuts, proper cementing and grout, placement of trial implants, placement of final cemented distal femur proximal tibia and patellar implants, wound closure and placement of drain, placement of knee immobilizer and placement in postop hinged knee brace fitted for the patient. Hari Lance was present for the entire case. It was an absolute necessity for successful completion of the procedure. TYPE OF ANESTHESIA: General endotracheal anesthesia with a postop regional nerve block placed by Anesthesia staff in PACU. SPECIMEN: Bony cuts and loose bodies sent to pathology. TOURNIQUET TIME: 120 minutes at 300 mmHg. COMPLICATIONS: None. ESTIMATED BLOOD LOSS: 50 mL. DRAINS: Hemovac drain x1. DISPOSITION: The patient was extubated and transferred to PACU in stable condition. IMPLANTS: 1. Medacta MyKnee GMK primary cemented total knee system consisting of cemented distal femur size 3 narrow, cemented tibial tray size 3, cemented size 1 patellar button, polyethylene tibial spacer, sphere, 14 mm size. 2. Biomet [place] cement. INDICATIONS FOR SURGERY: The patient is a 61-year-old female with past medical history significant for diabetes and hypercholesterolemia as well as recovered from stage I breast cancer, who presented to my office as a long-term patient since 11/16/2015, she was treated successfully for a left hand middle finger trigger finger and thumb flexor tendon with surgical debridement and releases and recovered from that surgery well. During her treatment, she started to complain of bilateral knee pain, left much worse than the right. X-rays in the office revealed left worse than right knee degenerative joint disease, varus alignment. Under my care, she underwent cortisone mixture injections to the left knee on 09/16/2016, which provided near complete resolution of pain temporarily. She was referred to physical therapy and was able to obtain Neoprene hinged knee braces to help with support. She was started on antiinflammatory medication in the form of Mobic and compound antiinflammatory pain cream. She underwent hyaluronic acid injection series in the form of Hyalgan for injection series starting on 11/30/2016. This also provided with good pain relief and she was happy with her progress. Unfortunately, this only lasted a few months. In 03/2017, she called the office stating that she has severe pain and she presented to the office on 04/17/2017 where she underwent cortisone injection again. At this time, she obtained pain relief for only 2 weeks and she returned to the office on 05/15/2017 where she underwent cortisone injection again and at that point in time she was indicated for a left knee total knee arthroplasty. She was referred for the [facility] to be able to obtain the custom cutting blocks to undergo her total knee replacement and we planned for a total knee arthroplasty to be done on 06/25/2017 at [facility]. After failing conservative treatments for over 2 years, she was indicated for the total knee arthroplasty. Prior to treatment under my care on 09/16/2016 for her left knee pain and disability, she had also been under the care of Dr. Sprague, who is another orthopedic surgeon for the past 2 to 3 years and had undergone cortisone injections and referral to physical therapy and treatments under his care as well. All in all, she failed conservative treatments for her left knee degenerative joint disease and varus deformity with synovitis for over 3 years. Finally, as stated before, under my care, after she failed conservative treatments including cortisone mixture injections x3, hyaluronic acid injection series, bracing, antiinflammatory cream, multiple rounds of physical therapy, antiinflammatory mediation for over 9 months, she was finally indicated for left knee total knee arthroplasty. The risks, benefits and alternatives to the procedure were discussed at length with the patient and her with the risks including but not limited to infection, neurovascular damage, need for further surgery, failure of implants, need for revision surgery, iatrogenic injury including periprosthetic fracture, development of stiffness, need for manipulation under anesthesia, development of chronic pain and disability, development of blood clots including DVT and PE, loss of limb, loss of function, cardiopulmonary failure and including anesthesia reactions. After answering all of her questions, she stated that she understood the risks and wished to proceed with surgery. She watched surgical animation videos and diagnoses animation videos in my office and after answering all of her questions, she stated that she understood the diagnosis as well as the surgery to be done. She was referred to her primary care physician for PATs and preoperative medical evaluation and the procedure was scheduled on 06/25/2017 at [facility]. We also reviewed at length the need for compliance with the postoperative rehab program in order for her to maximized chance of having successful outcome after surgery and regaining her range of motion and function. The patient stated that she understood the need for compliance with the program in order for her to maximize the chance of having successful outcome after surgery. PROCEDURE IN DETAIL: The patient was identified in the preoperative holding area and the left knee was marked for surgery. Once again, as described above, the risks, benefits and alternatives to the procedure was discussed at length with the patient and informed consent was obtained. After a brief discussion with the Anesthesia staff, perioperative IV antibiotics in the form of 2 g Ancef were administered and the patient was taken to the operating room, placed on the well-padded operating room table with all bony prominences and superficial neurovascular structures well padded. An initial time-out was done with the surgeon, Anesthesia staff, OR staff and all in agreement with the patient, procedure being done and the extremity being operated on. General anesthesia was administered without difficulty or complication. Examination under anesthesia was then carried out. Left knee with overall varus deformity. No swelling, no warmth, no erythema. Skin intact. Range of motion limited lacking approximately 3 degrees terminal extension, able to flex with a mechanical stop up to 110 degrees. No evidence of instability with negative anterior drawer, negative posterior drawer, negative Vivi, negative reverse Vivi, negative pivot shifts, negative reverse pivot shifts, negative dial test, negative posterolateral corner drawer, negative opening to medial or lateral joint lines and 0 to 30 degrees varus and valgus stress. Patella with normal tracking, but significant crepitus throughout range of motion. A tourniquet was placed high on the left thigh set to 300 mmHg. The left lower extremity was prepped and draped in a standard sterile fashion. A final time-out was done with the surgeon, Anesthesia staff, OR staff and all in agreement with the patient, procedure being done and the extremity being operated on. Left lower extremity was prepped and draped in standard sterile fashion. The left lower extremity was exsanguinated and tourniquet was inflated for a total tourniquet time of 120 minutes. A medial parapatellar approach was employed for this procedure. Incision was placed slightly medial to avoid kneeling pain and to allow for obtaining full flexion with no scar, contracture formation. Incision was made through skin down subcutaneous tissue while maintaining good hemostasis. The incision was started 3 fingerbreadths above the level of the superior pole of the patella and ended at the tibial tuberosity. Incision was made through skin down subcutaneous tissue down to the level of the fascia while maintaining good hemostasis. An arthrotomy was then carried out starting at the medial aspect of the quadriceps tendon through longitudinally down the medial fibers of the quadriceps tendon around the medial aspect of the patella through the medial retinaculum down to the medial aspect of the patellar tendon down to the tibial tuberosity. Immediately seen was significant hypertrophic synovitis and synovial lining that was indeed causing significant pain to the patient. The first step was to perform an open synovectomy removing all this abundant and hypertrophic inflamed synovial lining throughout the anterior aspect of the knee joint starting at the distal femur all the way down to the tibial tuberosity. Once a successful extensive open synovectomy was carried out to satisfaction while maintaining good hemostasis, we then continued with the procedure. The infrapatellar fat pad was resected and the patella was flipped over. Decision was made to proceed with the patellar cut first and with the help of the Promethean patellar guide, the patellar cut was carried out successfully while maintaining good bone stalk at the patella. We would return to complete the peg holes for the patella after the continuation of procedure. Attention was then turned towards the distal femur and as started before, an extensive synovectomy was necessary both as treatment and to allow for exposure of the distal femur. The contact points for the custom MyKnee system were then debrided of cartilage and pinned to the distal femur. The custom cutting blocks were successfully secured to the distal femur and the distal femoral cut was carried out. Four-in-one guide was pinned into position in the anterior and posterior cuts as well as the anterior and posterior chamfer cuts were carried out successfully. A size 3 narrow distal femur trial was then impacted into position and fit perfectly. Trial implants were removed and we continued with the preparation of the distal femur including the sphere system notch preparation. Once this was carried out to satisfaction, attention was then turned towards the proximal tibia preparation. The contact points for the custom tibial cutting guide were debrided and the custom tibial cutting guide was pinned into position and secured. The proximal tibia cut was carried out to satisfaction. All remaining meniscal tissue was debrided and resected. Immediately seen at the posterior aspects of the knee joints were numerous small loose bodies which were removed requiring extra time. With the use of the joint distracters in position, we were able to gain access to the far posterior aspect of the capsule and the multiple loose bodies were successfully removed. They totalled 6 in total and were varied from measuring half a centimeter to 1 cm in size. Once all the loose bodies were removed, the posterior osteotome was used to clear any posterior osteophytes from the femoral condyles and then we continued with preparation of the proximal tibia. The wedge osteotome was impacted into position and the reamer was advanced as well to prepare the proximal tibia canal. Once this was done to satisfaction, all cut surfaces were copiously irrigated and trial implants were placed. Trial implant size 3 narrow distal femur with a size 3 tibial baseplate and 12 mm sphere polyethylene spacer. This provided good stability with no mid flexion and instability and we were able to obtain full range of motion from 0 degrees to 140 degrees flexion. At that point in time, we completed the patellar cuts with a size 1 fitting perfectly and the peg holes were created for the patella. The patella was well situated and stable with normal tracking obtained. All trial implants were removed and cut surfaces were copiously irrigated. Cement was mixed and proper cement technique was used to prepare the distal femur and proximal tibia and patella. We started with placement of the cemented proximal tibial baseplate. Proper cement technique was employed and the baseplate was impacted into position and secured with good alignment achieved. Excess cements were removed and attention then turned towards placement of the distal femur. Proper cement technique was employed and the distal femur implant was impacted into position. A 12 mm sphere trial spacer was then inserted and axial load was held on the knee and full extension until the cement hardened. The patellar button was then cemented into position with cements placed in the peg holes with proper cement technique as well. The Medacta patellar funeral arranger was then placed to apply pressure as the cement hardened for the patella as well. All excess cements from all 3 components were removed and we waited for the cement to harden. Once the cement hardened, the tourniquet was deflated with a total tourniquet time of 120 minutes and good hemostasis was achieved. Local anesthetic was injected into the posterior capsule as well and after trialling multiple sphere polyethylene spacers, a 14 mm sphere polyethylene spacer was opened and placed into position. Once this was locked into position with the screw into the proximal tibia, the knee was taken through range of motion and once again we confirmed that we had complete stability from 0 degrees extension to 140 degrees flexion with worship of neutral alignment and no mid flexion instability. Good hemostasis was achieved and local anesthetic was placed medially and laterally and anteriorly in the soft tissue. A Hemovac drain was placed and the wound was reapproximated after copious irrigation with almost 1000 mL of fluid and antibiotic fluid as well. The wound was reapproximated with alternating #1 Vicryl suture and #2 FiberWire suture for the retinacular/quadriceps/patellar tendon MPFL repair. Once the retinaculum was repaired, attention was then turned towards reapproximation of deep and superficial soft tissue. #1 Vicryl suture was used followed by 2-0 Vicryl suture for subcutaneous tissue followed by jessica for skin. Sterile dressings were applied followed by a layer of sterile cast padding from the toes up to the superior thigh followed by a layer of compressive ROSE wrap from the toes up to the superior thigh. The knee was then placed in a postop hinged knee brace provided by my office and fitted for the patient. Once the brace was in position, locked at full extension, the patient was then awaken from anesthesia and transferred to the PACU in stable condition and tolerated procedure well. DISPOSITION: The patient will remain as an inpatient for a few days until she is medically stable for discharge. The patient wishes to be discharged home with services and if indeed it is a safe discharge with Physical Therapy evaluates and she proved that she can go home, then she will be discharged home once she is medically stable. Otherwise, she will be discharged to a facility/rehab facility. Once she is discharged, she will follow up in my office at [facility] within 1 week. She will receive adequate pain control. She will be started on DVT prophylaxis in the form of Lovenox 40 mg once daily subcu injections starting postoperative day #1. I will monitor her progress as an inpatient. Devonte Harper MD
== END 2017-07-01 18:24 | DRG 982 ==
LOC: C.9S 06:14 → C.6T 14:36
PROVIDERS: ADMIT Internal Medicine Pulmonary Disease; ATTEND Internal Medicine Pulmonary Disease
PROC: 0SCD0ZZ Extirpation of Matter from Left Knee Joint, Open Approach (ICD-10-PCS; 2017-06-25)
PROC: 0SRD0J9 Replacement of Left Knee Joint with Synthetic Substitute, Cemented, Open Approach (ICD-10-PCS; principal; 2017-06-25 07:30)
DX: N99.89 Other postprocedural complications and disorders of genitourinary system (principal); N39.0 Urinary tract infection, site not specified; E83.39 Other disorders of phosphorus metabolism; E83.51 Hypocalcemia; E11.9 Type 2 diabetes mellitus without complications; B96.20 Unspecified Escherichia coli [E. coli] as the cause of diseases classified elsewhere; E66.9 Obesity, unspecified; E78.00 Pure hypercholesterolemia, unspecified; M17.12 Unilateral primary osteoarthritis, left knee; H54.7 Unspecified visual loss; R33.8 Other retention of urine; Y83.8 Other surgical procedures as the cause of abnormal reaction of the patient, or of later complication, without mention of misadventure at the time of the procedure; Z79.84 Long term (current) use of oral hypoglycemic drugs; M23.42 Loose body in knee, left knee; Z96.652 Presence of left artificial knee joint; I10 Essential (primary) hypertension; K59.00 Constipation, unspecified; M65.9 Synovitis and tenosynovitis, unspecified; R63.0 Anorexia; Z80.3 Family history of malignant neoplasm of breast; Z85.3 Personal history of malignant neoplasm of breast; Z87.440 Personal history of urinary (tract) infections; E87.6 Hypokalemia

== ENCOUNTER 2018-01-09 06:06 | Day surgery (SDC) | payer OTHER ==
[2017-06-10 08:16] VITALS: BMI 35.6
[2018-01-09] MEDS ORDERED: ceFAZolin 1 gm in NS 1 GM/100 ML BAG IVPB ONE ×2 (06:45→07:49)
[2018-01-09] MEDS ORDERED: Lidocaine 1% 20 MG/2 ML PF AMP ONE (07:06)
[2018-01-09] MEDS ORDERED: Propofol 10 mg/ml Inj (20 ML) ONE ×2 (07:25→07:37)
[2018-01-09] MEDS ORDERED: Midazolam 2 MG/2 ML VIAL ONE (07:25)
[2018-01-09] MEDS ORDERED: Oxymetazoline 0.05% Nasal Spray (30 ml) NS ONE (07:53)
[2018-01-09] MEDS ORDERED: HYDROmorphone 0.5 mg/0.5 ml ISec IVP PRN (08:47)
[2018-01-09] MEDS ORDERED: Lactated Ringer's 500 ML IV ONE (10:15)
[2018-01-09 11:27] VITALS: BP 136/88; PULSE 75; RESP 18; TEMP 97.7; O2SAT 98
--- NOTE | 2018-01-12 23:31 | PCM.SURG1 ---
Surgeon's Initial Post Op Note - Surgeon's Notes Surgeon: Devonte Harper MD [employer]der Canning Leader: Hari Lance PA-C Type of Anesthesia: General Endo, Block Regional Pre-Operative Diagnosis: Left hand ring finger. #1 trigger finger. #2 tenosynovitis Operative Findings: Left hand ring finger. #1 trigger finger. #2 tenosynovitis / partial tearing Post-Operative Diagnosis: Left hand ring finger. #1 trigger finger. #2 flexor tendon tenosynovitis/partial tearing Operation Performed: Left hand ring finger. #1 open trigger finger release. # 2 debridement partial tear. #3 synovectomy Specimen/Specimens Removed: specimen= inflammed synovial lining to pathology. touniquet time= 0min. complications= none. implants= none Estimated Blood Loss: EBL {In ML}: 3 Blood Products Given: N/A Drains Used: No Drains Post-Op Condition: Good Date of Surgery/Procedure: 01/09/18 Time of Surgery/Procedure: 08:00
--- NOTE | 2018-01-13 16:26 | CARD ---
APPROVED REPORT Date of service: 01/09/2018 EKG Measurement Heart [id number] <Conclusion> Normal sinus rhythm Normal ECG
--- NOTE | 2018-01-19 02:12 | OP ---
Copied To: Devonte Harper MD Attending MD: Devonte Harper MD PROCEDURE DATE: 01/09/2018 PREOPERATIVE DIAGNOSES: Left hand ring finger: 1. Trigger finger. 2. Flexor tenosynovitis. POSTOPERATIVE DIAGNOSES: Left hand ring finger: 1. Trigger finger. 2. Flexor tenosynovitis. 3. Partial tear. PROCEDURES: Left hand ring finger, open: 1. Trigger finger release. 2. Synovectomy and debridement, flexor tendon. SURGEON: Devonte Harper M.D. [employer]INB[employer] TROUT FARM MANAGER: Hari Lance PA-C. JUSTIFICATION FOR RAINB[employer] FARM MANAGER: Hari Lance is a certified physician medical office receptionist assistant whose skilled surgical service was an absolute necessity for successful completion of the procedure as he provided skilled surgical assistance with positioning of the patient, positioning of extremity, management of the surgical field, retraction of neurovascular structures, and wound closure. Hari Lance was present for the entire case and was an absolute necessity for successful completion of the procedure. TYPE OF ANESTHESIA: General endotracheal anesthesia with a regional block placed by anesthesia staff in PACU. SPECIMEN: Inflamed synovial lining sent to pathology. TOURNIQUET TIME: 0 minutes. COMPLICATIONS: None. IMPLANTS: None. ESTIMATED BLOOD LOSS: 3 mL. DRAINS: None. DISPOSITION: The patient was extubated and transferred to PACU in stable condition and tolerated the procedure well. INDICATIONS FOR SURGERY: The patient is a 62-year-old female, right-hand dominant, past medical history is significant for diabetes and hypertension, who has been under my care for the past two years for left hand thumb trigger finger, bilateral knee DJD. She underwent left hand thumb open trigger finger release by me nearly two years ago at [facility], she underwent left total knee arthroplasty at [facility] six months ago. As she was recovering from the knee replacement, her left hand ring finger trigger finger and pain and locking began to significantly worsen with the crutch and walker use. She underwent a cortisone injection by me localized to the A1 josefa and flexor tendon of the left hand ring finger to provide her with enough resolution of pain and improvement in function that she was able to complete her rehab course after undergoing the left knee replacement. Over the past month, the pain has significantly worsened and she is having difficulty opening doors and the locking episodes are a lot more in frequence with significant pain. She rates her pain as 8/10 consistently especially with locking episodes. After confirming the effects of the cortisone injection and failing conservative treatment, she was indicated for surgical intervention in the form of left hand ring finger open trigger finger release and possible debridement, and all related indicated procedures. She was referred to her primary care physician, Dr. Villalobos, and obtained medical clearance and the procedure was scheduled at [facility] on 01/09/2018. The risks, benefits, and alternatives to the procedure were discussed in length with the patient with the risks including, but not limited to, infection, neurovascular damage, loss of limb, loss of function, inability to return to preinjury level of activity, stiffness, need for further surgery, failure of release and treatment, anesthesia reactions including , development of chronic pain with disability, development of blood clots including DVT and PE. She accepted the risks and wished to proceed with surgery after all questions were answered. She watched surgical animation videos and diagnosis animation videos and stated that she had a good understanding of the procedure to be done and her diagnosis. She underwent a similar procedure to her left hand thumb nearly two years ago under my care. I reviewed at length with her the postoperative rehabilitation protocol and she stated that she understood the need for compliance with the rehab protocol in order to maximize chances of having successful outcome after surgery. PROCEDURE IN DETAIL: The patient was identified in the preoperative holding area and the left knee was marked for surgery. Once again, as described above, the risks, benefits, and alternatives to the procedure were discussed at length with the patient and informed consent was obtained. After brief discussion with anesthesia staff, the patient was taken to the operating room and placed on a well-padded operating room table with all bony prominences and superficial neurovascular structures well padded and a hand table in position for the left upper extremity. Left upper extremity was prepped and draped in standard sterile fashion. A tourniquet was placed high on the left arm, but never inflated. Final time-out was done with the surgeon, anesthesia staff, OR staff, all in agreement with the patient, procedure being done, and extremity being operated on. The left hand was examined under anesthesia and, indeed, there was reproducible locking of the A1 josefa at the ring finger with a palpated nodule. A small 2-cm incision was made perpendicular to the long axis of the hand directly over the palpated A1 josefa and nodule. Incision was made to skin down to subcutaneous tissue down to the level of the subcutaneous fat and flexor retinaculum/fascia. The flexor tendons were easily identified and traced down to the A1 josefa, which was found to be significantly thickened causing significant triggering. With a blunt device protecting the underlying flexor tendon, a sharp blade was used to cut the A1 josefa to release the flexor tendon as a trigger finger open release. After the A1 josefa was completely released, the flexor tendon was then brought into the surgical field and carefully evaluated. It appeared that the flexor digitorum profundus and the flexor digitorum superficialis of the ring finger exhibited partial tearing of approximately 10% of the fibers with significant tendinopathy and thickened tenosynovial layer surrounded the tendon. With careful use of micro devices, we are able to perform an extensive synovectomy of the flexor tendons without causing any damage to the underlying flexor tendons, and we sent portion of the sheath to pathology. Again, after careful evaluation of the flexor tendons, both the FPS and FDS exhibited partial tearing that was no more than 10% of the fibers and we debrided this partial tearing down to establish smooth, dynamic flow of the tendon without any resulting triggering. Once all the treatment was completed and we were satisfied with the effect of the synovectomy and debridement as well as the trigger finger release, the wound was copiously irrigated and good hemostasis was achieved. Deep tissue was reapproximated with 3-0 Vicryl suture followed by skin with 3-0 nylon suture. Sterile dressings were placed as well as a layer of cast padding and compressive Taco wrap. The patient was then extubated and transferred to PACU in stable condition and tolerated the procedure well. DISPOSITION: The patient will be discharged home once she is recovered from anesthesia. She will follow up in my office within one week at [facility] and already has her postoperative appointment set up. She was given a prescription for Percocet for pain control. She was instructed to keep the dressings and the padding clean and dry and intact until she follows up in the office. She will contact me with any questions or concerns. Devonte Harper MD
== END 2018-01-09 11:20 | disposition home or self-care (01) ==
LOC: C.SDS 06:06
PROVIDERS: ATTEND Student in an Organized Health Care Education/Training Program
DX: M65.342 Trigger finger, left ring finger (principal); M65.832 Other synovitis and tenosynovitis, left forearm
CPT/HCPCS: 26055; 82948; 88304; 93005; J0690; J1170; J2250; J2704; J3010; J7120

== ENCOUNTER 2018-09-05 09:23 | Outpatient (CLI) | payer BC | END 2018-09-05 09:24 | disposition home or self-care (01) | LOC: C.CTH 09:23 | DX: M17.11 Unilateral primary osteoarthritis, right knee (principal) ==

== ENCOUNTER 2018-10-23 07:34 | Outpatient (CLI) | payer BC | END 2018-10-23 07:35 | disposition home or self-care (01) | LOC: C.PAT 07:34 | DX: Z01.818 Encounter for other preprocedural examination (principal) ==

== ENCOUNTER 2018-10-31 08:48 | Outpatient (CLI) | payer BC | END 2018-10-31 08:49 | disposition home or self-care (01) | LOC: C.LAB 08:48 | DX: M17.11 Unilateral primary osteoarthritis, right knee (principal) ==